=== PATIENT | male | born 1930 | race Caucasian/White ===

== ENCOUNTER 2016-05-23 04:10 | Observation (INO) | payer MEDICARE, OTHER ==
[~2016-05-23] VITALS: Ht 170.2 cm; Wt 88.6 kg
[~2016-05-23 04:10] MED LIST: ACTOS15 MG OR; AMOXICILLIN500 MG PO; BABY ASPIRIN81 MG PO; BAYER ASPIRIN E81 MG PO; CIPRO500 MG OR; COREG6.25 MG PO; DIFLUCAN100 MG PO; FINASTERIDE5 MG PO; FOSINOPRIL20 MG PO; GABAPENTIN100 MG PO; ISOSORB MONO30 MG PO; LANTUS SC; LANTUS100 MG/ML SC; LASIX40 MG OR; LIPITOR40 MG PO; LISINOPRIL20 MG PO; MELOXICAM7.5 MG PO; METO50TA52 OR; MICRO-K10 MEQ OR; NADOLOL20 MG PO; NAPROSYN500 MG PO; PLAVIX75 MG OR; PLAVIX75 MG PO; PROSCAR OR; PROSCAR5 MG PO; SYNTHROID100 MCG PO
--- NOTE | 2016-05-23 04:48 | NUR ---
PT. TO ROOM 12 WITH C/O CALLING EMS THE FIRST TIME WITH A LOW BG. 27 ON EMS ARRIVAL. EMS ADMINISTERED 1 AMP. OF D50. BG THEN 220 BY EMS. PT REFUSED TRANSPORT TO ED AT THIS TIME. 2 ND CALL FOR EMS WAS A C/O BY THAT PT. FELL. UPON ARRIVAL BG BY EMS 94. PT. THEN AGREED FOR TRANSFER TO ED. BG ON ARRIVAL TO ED 64. PT. GIVEN ENSURE CLEAR WITH 1 PACKET OF SUGAR, ALSO GIVEN APPLESAUCE. PT. STATES HE DOES NOT KNOW ANY MEDICATIONS THAT HE TAKES, JUST THAT HE TAKES A FISTFULL. PT. IS AWAKE ALERT AND ORIENTED, SKIN WARM AND DRY TO TOUCH, COLOR WNL, RESP. EVEN AND UNLABORED. V/S STABLE.
--- NOTE | 2016-05-23 04:57 | NUR ---
UNABLE TO RECONCILE MEDS. PATIENT STATES HE TAKES A HANDFUL OF MEDS AND INSULIN. HIS MEDS ARE HOME AND HIS IS NOT COMING IN UNTIL AFTER DAYLIGHT. UNABLE TO SECURE AN IV LINE. DR. ARRIAZA ALSO ATTEMPTED TO GET AN IV LINE. ACCUCHECK 64. GIVEN SUPPLEMENTAL DRINKS AND APPLESAUCE SWEETENED WITH SUGAR.
--- NOTE | 2016-05-23 05:40 | NUR ---
DRINKING A CAN OF GLUCERNA. VSS.
[2016-05-23 05:41] LABS: ALBUMIN 3.2 g/dL (3.2-5.0); BILIRUBIN, TOTAL 0.6 mg/dL (0.0-1.4); CALCIUM 8.7 mg/dL (8.4-10.2); CREATININE 1.7 mg/dL (0.7-1.3); POTASSIUM 4.2 mmol/l (3.5-5.1); TOTAL PROTEIN 6.4 g/dL (6.3-8.2)
[2016-05-23 05:48] LABS: HEMATOCRIT 30.9 % (39.0-50.0); HEMOGLOBIN 9.7 g/dl (14.0-18.0); IMMATURE GRANULOCYTES 1.4 % (0.0-1.0); MEAN CELL VOLUME 93.4 fL CALC (80.0-100.0); MEAN CORPUSCULAR HGB 29.3 pG CALC (26.0-32.0); MEAN CORPUSCULAR HGB CONC 31.4 g/L CALC (32.0-36.0); NEUT# 4.85 thou/uL (1.82-7.42); RED BLOOD COUNT 3.31 mill/uL (4.70-6.10); RED CELL DISTRI WIDTH 14.8 % (11.5-15.5)
[2016-05-23 06:12] LABS: TSH, 3RD GENERATION 1.56 uIU/mL (0.47 - 4.68)
[2016-05-23 06:38] LABS: URINE BILIRUBIN - DIPSTICK NEGATIVE (NEGATIVE); URINE BLOOD DIPSTICK LARGE (NEGATIVE); URINE CLARITY TURBID; URINE COLOR YELLOW; URINE GLUCOSE - DIPSTICK NEGATIVE (NEGATIVE); URINE KETONE NEGATIVE (NEGATIVE); URINE NITRITE - DIPSTICK NEGATIVE (Negative); URINE PH 5.5 (4.5-8.0); URINE PROTEIN - DIPSTICK 100 mg/dL (NEG-TRACE); URINE SPECIFIC GRAVITY 1.025; URINE UROBILINOGEN - DIPSTICK 0.2 E.U./dL (0.2)
[2016-05-23 06:42] LABS: URINE LEUK ESTERASE MODERATE (NEGATIVE)
[2016-05-23 06:43] LABS: URINE BACTERIA FEW hpf; URINE SQUAMOUS EPITHELIAL CELL FEW EPI/hpf (0-FEW); URINE WBC 20-50 WBC/hpf (0-5)
--- NOTE | 2016-05-23 06:46 | NUR ---
REPORT GIVEN TO ASYA JONES.
[2016-05-23 06:59] LABS: INTERNATIONAL NORMALIZED RATIO 1.2 RATIO (0.7-1.3); PROTHROMBIN TIME 12.7 SECONDS (9.0-12.5)
--- NOTE | 2016-05-23 07:50 | NUR ---
PT TOLERATED CENTRAL LINE PLACEMENT BY MD WELL.
--- NOTE | 2016-05-23 08:14 | NUR ---
PT CONSUMING MEAL TRAY WITH NO SIGNS OF DISTRESS. AWAITING ADMISSION.
--- NOTE | 2016-05-23 08:20 | NUR ---
MED REC UNOBTAINABLE AT THIS TIME DUE TO PT NOT HAVING A LIST, UNABLE TO GET AHOLD OF HIS WHO HAS THE LIST, UNABLE TO REMEMBER NAMES OF MEDICATIONS THAT THE HOSPITAL HAS, AND PT'S PHARMACY CLOSED AT THIS TIME. [facility] WILL BE CALLED WHEN THEY OPEN
--- NOTE | 2016-05-23 09:30 | NUR ---
Admission Note Report Given to: DANIELE Transported by: Wheelchair X Stretcher Transported with: X Nurse Transporter X Patent IV O2 X Psychiatry Physician PT LEFT ER IN STABLE CONDITION
--- NOTE | 2016-05-23 09:40 | NUR ---
PT TO ROOM VIA STRETCHER ACCOMPANIED BY STAFF; X2 PERSON TX TO BED; PT A/O X3; PT STATES BLOOD SUGAR WAS LOW AND EMT BOUGHT HIM TO THE HOSPITAL; PT ORIENTED TO ROOM AND CALL SYSTEM; TELE MONITOR IN PLACE; CALL CORBIN WITHIN REACH; WILL CONTINUE TO MONITOR.
[2016-05-23 09:59] VITALS: BP 135/58
--- NOTE | 2016-05-23 11:00 | NUR ---
DR. CASTILLO IN TO SEE PT;
[2016-05-23] MEDS ORDERED: AMIODARONE400 MG PO (12:28)
[2016-05-23] MEDS ORDERED: NORVASC PO (12:29)
[2016-05-23] MEDS ORDERED: LIPITOR40 M1 PO (12:29)
[2016-05-23] MEDS ORDERED: ASPIRIN EC81 MG PO (12:29)
[2016-05-23] MEDS ORDERED: PLAVIX75 MG PO (12:30)
[2016-05-23] MEDS ORDERED: COREG25 MG PO (12:30)
[2016-05-23] MEDS ORDERED: FINASTERIDE5 MG PO (12:31)
[2016-05-23] MEDS ORDERED: LANTUS100 MG/ML SC ×2 (12:32→12:33)
[2016-05-23] MEDS ORDERED: GABAPENTIN300 M2 PO (12:32)
[2016-05-23] MEDS ORDERED: LASIX 40 MG TAB40 MG PO (12:33)
[2016-05-23] MEDS ORDERED: LEVAQUIN500 MG PO (12:33)
[2016-05-23] MEDS ORDERED: METOCLOPRAM5 MG PO (12:34)
[2016-05-23] MEDS ORDERED: MELATONIN PO (12:34)
[2016-05-23] MEDS ORDERED: SYNTHROID100 MCG PO (12:35)
--- NOTE | 2016-05-23 13:00 | NUR ---
PT WATCHING TV; NO COMPLAINTS VOICED AT THIS TIME; SPOUSE IN ROOM; CALL CORBIN WITHIN REACH; WILL CONTINUE TO MONITOR.
--- NOTE | 2016-05-23 16:00 | NUR ---
PT IN RECLINER; PT REQUESTING NEW BED; ONE PROVIDED; CALL CORBIN WITHIN REACH; WILL CONTINUE TO MONITOR.
[2016-05-23 16:32] VITALS: BP 126/66
--- NOTE | 2016-05-23 18:00 | NUR ---
PT ASSISTED BACK TO BED; TELE MONITOR IN PLACE; PT DENIES PAIN; CALL CORBIN WITHIN REACH; WILL CONTINUE TO MONITOR.
[2016-05-23 18:53] VITALS: BP 149/74
--- NOTE | 2016-05-23 20:45 | NUR ---
[facility] PT.IS BEING ADMINISTERED PAIN MED UPON BEDSIDE REPORT, WILL REASSESS; PT.DENIES ANY FURTHER NEEDS AT THIS TIME.
--- NOTE | 2016-05-23 21:35 | NUR ---
PT.MEDICATED ORDERS PROVIDE, PT.REFUSED INSULIN; PT.EDUCATED, BUT STILL REFUSED
[2016-05-24 01:17] VITALS: BP 115/62
--- NOTE | 2016-05-24 03:00 | NUR ---
PT.SLEEPING AT THIS TIME; NO S/S OF DISTRESS
[2016-05-24 04:00] VITALS: BP 126/62
[2016-05-24 06:18] LABS: HEMATOCRIT 28.5 % (39.0-50.0); HEMOGLOBIN 9.5 g/dl (14.0-18.0); IMMATURE GRANULOCYTES 1.5 % (0.0-1.0); MEAN CELL VOLUME 90.2 fL CALC (80.0-100.0); MEAN CORPUSCULAR HGB 30.1 pG CALC (26.0-32.0); MEAN CORPUSCULAR HGB CONC 33.3 g/L CALC (32.0-36.0); NEUT# 2.71 thou/uL (1.82-7.42); RED BLOOD COUNT 3.16 mill/uL (4.70-6.10); RED CELL DISTRI WIDTH 14.7 % (11.5-15.5)
[2016-05-24 07:47] LABS: ALBUMIN 3.1 g/dL (3.2-5.0); BILIRUBIN, TOTAL 0.6 mg/dL (0.0-1.4); CALCIUM 8.6 mg/dL (8.4-10.2); CREATININE 1.5 mg/dL (0.7-1.3); TOTAL PROTEIN 6.3 g/dL (6.3-8.2)
--- NOTE | 2016-05-24 09:15 | NUR ---
899-PT TO RADIOLOGY VIA WC ACCOMPANIED BY STAFF. 914-PT RETURNED TO FLOOR VIA WC ACCOMPANIED BY STAFF. PT UP TO RECLINER CHAIR WITH ASSISTANCE OF STAFF X1. PT TOLERATED WELL.
[2016-05-24] MEDS ORDERED: AUGMENTIN875TAB PO (09:32)
--- NOTE | 2016-05-24 09:40 | NUR ---
PT SITTING UP IN RECLINER CHAIR. ASSESSMENT COMPLETED. ROCEPHIN IV ABT COMPLETED AT THIS TIME. POC DISCUSSED WITH PT. AWAITING CALL BACK FROM [facility] NURSE TO GIVE REPORT. PT VERBALIZES UNDERSTANDING. WILL CONTINUE TO MONITOR. CALL LIGHT IN REACH.
--- NOTE | 2016-05-24 10:05 | NUR ---
REPORT GIVEN TO JAY AT [facility]. AWAITING TRANSPORATION TIME. PT AND PTS UPDATED. CALL LIGHT IN REACH.
[2016-05-24 11:05] VITALS: BP 116/67
--- NOTE | 2016-05-24 14:39 | NUR ---
CENTRAL LINE REMOVED AT THIS TIME; PT TOLERATED WELL; PRESSURE HELD FOR 10 MINS; CATHETER INTACT UPON REMOVAL; PT EDUCATED TO CALL IF ANY BLEEDING IS NOTED; CALL LIGHT WITHIN REACH; WILL CONTINUE TO MONITOR
--- NOTE | 2016-05-24 15:04 | NUR ---
Discharge instructions given. Patient verbalizes understanding of same. Discharged in stable condition via Wheelchair to *Other with *Other. All belongings sent with pt.
== END 2016-05-24 15:00 ==
LOC: ENPENDDIS → ED 04:10 → ED-I 08:05 → ED 08:48 → MS2 08:49
PROVIDERS: Emergency Medicine; Internal Medicine; ADMIT Internal Medicine; ATTEND Internal Medicine
PROC: 02HV33Z Insertion of Infusion Device into Superior Vena Cava, Percutaneous Approach (ICD-10-PCS; principal; 2016-05-23)
DX: E11.649 Type 2 diabetes mellitus with hypoglycemia without coma (principal); N17.9 Acute kidney failure, unspecified; N39.0 Urinary tract infection, site not specified; I10 Essential (primary) hypertension; I25.10 Atherosclerotic heart disease of native coronary artery without angina pectoris; E03.9 Hypothyroidism, unspecified; I49.9 Cardiac arrhythmia, unspecified; E78.5 Hyperlipidemia, unspecified; E11.40 Type 2 diabetes mellitus with diabetic neuropathy, unspecified; Z87.891 Personal history of nicotine dependence; Z79.4 Long term (current) use of insulin; Z95.5 Presence of coronary angioplasty implant and graft; Z91.81 History of falling; Z79.82 Long term (current) use of aspirin; Z79.02 Long term (current) use of antithrombotics/antiplatelets; J98.11 Atelectasis; R09.02 Hypoxemia

== ENCOUNTER 2016-08-05 14:59 | Emergency (ER) | payer MEDICARE, OTHER ==
[~2016-08-05] VITALS: Ht 170.2 cm; Wt 90.0 kg
[~2016-08-05 14:59] MED LIST changes: +AMIODARONE400 MG PO; +ASPIRIN EC81 MG PO; +AUGMENTIN875TAB PO; +COREG25 MG PO; +GABAPENTIN300 M2 PO; +LASIX 40 MG TAB40 MG PO; +LEVAQUIN500 MG PO; +LIPITOR40 M1 PO; +MELATONIN PO; +METOCLOPRAM5 MG PO; +NORVASC PO
[2016-08-05 16:32] LABS: HEMATOCRIT 36.7 % (39.0-50.0); HEMOGLOBIN 12.8 g/dl (14.0-18.0); MEAN CELL VOLUME 85.3 fL CALC (80.0-100.0); MEAN CORPUSCULAR HGB 29.8 pG CALC (26.0-32.0); MEAN CORPUSCULAR HGB CONC 34.9 g/L CALC (32.0-36.0); NEUT# 7.2 thou/uL (1.82-7.42); RED BLOOD COUNT 4.3 mill/uL (4.70-6.10); RED CELL DISTRI WIDTH 13.9 % (11.5-15.5)
[2016-08-05 16:45] LABS: ACT PARTIAL THROMBO TIME 24.4 SECONDS (20.0-32.5); INTERNATIONAL NORMALIZED RATIO 0.9 RATIO (0.7-1.3); PROTHROMBIN TIME 10.2 SECONDS (9.0-12.5)
[2016-08-05 16:50] LABS: ALBUMIN 4.1 g/dL (3.2-5.0); BILIRUBIN, TOTAL 0.7 mg/dL (0.0-1.4); CALCIUM 9.5 mg/dL (8.4-10.2); CREATININE 1.5 mg/dL (0.7-1.3); POTASSIUM 4.4 mmol/l (3.5-5.1); TOTAL PROTEIN 7.3 g/dL (6.3-8.2)
[2016-08-05 17:47] VITALS: BP 198/93
== END 2016-08-05 17:00 | disposition short-term general hospital (02) ==
LOC: ED 14:59
PROVIDERS: Emergency Medicine
DX: I63.9 Cerebral infarction, unspecified (principal); R53.1 Weakness; I10 Essential (primary) hypertension
CPT/HCPCS: J2997

== ENCOUNTER 2016-10-07 11:40 | Emergency (ER) | payer MEDICARE, OTHER ==
[~2016-10-07] VITALS: Ht 170.2 cm; Wt 88.0 kg
[2016-10-07 13:10] LABS: HEMATOCRIT 33.6 % (39.0-50.0); HEMOGLOBIN 11.5 g/dl (14.0-18.0); MEAN CELL VOLUME 88.9 fL CALC (80.0-100.0); MEAN CORPUSCULAR HGB 30.4 pG CALC (26.0-32.0); MEAN CORPUSCULAR HGB CONC 34.2 g/L CALC (32.0-36.0); NEUT# 6.39 thou/uL (1.82-7.42); RED BLOOD COUNT 3.78 mill/uL (4.70-6.10); RED CELL DISTRI WIDTH 13.6 % (11.5-15.5)
[2016-10-07 13:17] LABS: ALBUMIN 3.7 g/dL (3.2-5.0); BILIRUBIN, TOTAL 0.7 mg/dL (0.0-1.4); CALCIUM 9.5 mg/dL (8.4-10.2); CREATININE 1.7 mg/dL (0.7-1.3); POTASSIUM 4.6 mmol/l (3.5-5.1); TOTAL PROTEIN 6.9 g/dL (6.3-8.2)
[2016-10-07 14:21] VITALS: BP 144/74
== END 2016-10-07 14:40 | disposition left against medical advice (07) ==
LOC: ED 11:40 → ED-I 12:13 → ED 14:40
PROVIDERS: Emergency Medicine
DX: R07.9 Chest pain, unspecified (principal); E11.9 Type 2 diabetes mellitus without complications; I10 Essential (primary) hypertension; I25.10 Atherosclerotic heart disease of native coronary artery without angina pectoris; E03.9 Hypothyroidism, unspecified; E78.5 Hyperlipidemia, unspecified; Q63.1 Lobulated, fused and horseshoe kidney; Z91.19 Patient's noncompliance with other medical treatment and regimen; Z95.5 Presence of coronary angioplasty implant and graft

== ENCOUNTER 2016-12-03 22:44 | Inpatient (IN) | payer MEDICARE, OTHER ==
[~2016-12-03] VITALS: Ht 170.2 cm; Wt 88.8 kg
--- NOTE | 2016-12-03 22:51 | NUR ---
PT TO ROOM VIA EMS
--- NOTE | 2016-12-03 23:05 | NUR ---
RECEIVED REPORT FROM ROBERT ARMSTRONG. PT AMAN RAMIREZ
[2016-12-03 23:58] LABS: URINE CLARITY TURBID
[2016-12-04 00:02] LABS: URINE AMORPH SEDIMENT FEW hpf (NONE-FER); URINE BACTERIA FEW hpf; URINE COLOR BROWN; URINE MUCUS FEW hpf (NONE-FEW); URINE RBC >100 RBC/hpf (0-5); URINE SQUAMOUS EPITHELIAL CELL FEW EPI/hpf (0-FEW)
--- NOTE | 2016-12-04 00:22 | NUR ---
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 ASSISTED WITH CALLING ON PHONE, TISSUES GIVEN, URINAL PROVIDED, URINE OBTAINED AND TO LAB, EXPLAINED LAB RESULTS TO PATIENT (INCLUDING BLOOD IN URINE). AFTER WHICH PT SAID THAT HE HAD PAIN OF LUQ THIS EVENING BUT THE PAIN HAS GONE.
--- NOTE | 2016-12-04 01:25 | NUR ---
MULTIPLE ATTEMPTS FOR IV SITE.
[2016-12-04 01:53] LABS: HEMOGLOBIN 11.1 g/dl (14.0-18.0); IMMATURE GRANULOCYTES 0.7 % (0.0-1.0); MEAN CELL VOLUME 87.8 fL CALC (80.0-100.0); MEAN CORPUSCULAR HGB 29.5 pG CALC (26.0-32.0); MEAN CORPUSCULAR HGB CONC 33.6 g/L CALC (32.0-36.0); NEUT# 8.58 thou/uL (1.82-7.42); RED BLOOD COUNT 3.76 mill/uL (4.70-6.10); RED CELL DISTRI WIDTH 14.5 % (11.5-15.5)
[2016-12-04 02:04] LABS: ALBUMIN 3.3 g/dL (3.2-5.0); BILIRUBIN, TOTAL 0.7 mg/dL (0.0-1.4); CALCIUM 8.9 mg/dL (8.4-10.2); CREATININE 1.5 mg/dL (0.7-1.3); POTASSIUM 4.3 mmol/l (3.5-5.1); TOTAL PROTEIN 6.4 g/dL (6.3-8.2)
--- NOTE | 2016-12-04 02:25 | NUR ---
ASSESSMENT UNCHANGED, NO C/O.
--- NOTE | 2016-12-04 03:25 | NUR ---
RESTING QUIETLY ON STRETCHER, EYES CLOSED, NO C/O.
--- NOTE | 2016-12-04 04:22 | NUR ---
md in room to discuss clinical findings with pt. and also make him aware of admission. verbalized understanding.
--- NOTE | 2016-12-04 04:41 | NUR ---
pt. voided approx 250 ml brown colored urine.
--- NOTE | 2016-12-04 04:43 | NUR ---
po abt. given as per md order.
--- NOTE | 2016-12-04 04:58 | NUR ---
Admission Note Report Given to: WILEY JONES Transported by: Wheelchair X Stretcher Transported with: X Nurse Transporter X Patent IV O2 Nut Sheller Machine Operator
--- NOTE | 2016-12-04 05:00 | NUR ---
PT. TAKEN TO MS VIA STRETCHER. NO C/O.
[2016-12-04 05:10] VITALS: BP 172/72
--- NOTE | 2016-12-04 06:00 | NUR ---
PATIENT ADMITTED FROM ER VIA STRETCHER WITH ER STAFF IN ATTENDANCE. PATIENT IS AWAKE ALERT AND ORIENTEDX3. PATIENT ADMITTED FOR OBSTRUCTIVE UROPATHY AND S/P FALL AT HOME. PATIENT WITH IV SITE TO LEFT WRIST-IVF NS HUNG AND INFUSING AT 125CC/HR. SITE APPEARS HEALTHY AT THIS TIME. PATIENT DENIES ANY ALLERGIES. INSTRUCTED PATIENT NPO FOR POSSIBLE PROCEDURE LATER TODAY. PATIENT ORIENTED TO ROOM AND SURROUNDINGS. INSTRUCTED ON USE OF NURSE CALL LIGHT SYSTEM AND TV REMOTE. REVIEWED SAFETY PRECAUTIONS WITH PATIENT. CALL LIGHT IN REACH. WILL CONT TO MONITOR.
--- NOTE | 2016-12-04 07:28 | NUR ---
SHIFT CHANGE REPORT FROM MIKE JAMA SLEEPING AT THIS TIME, BREATHING EVEN AND NON-LABORED, IVF INFUSING, NO SIGN DISCOMFORT, CALL CORBIN IN REACH.
[2016-12-04 08:27] VITALS: BP 156/73
[2016-12-04] MEDS ORDERED: RESTORIL7.5 MG PO (09:34)
[2016-12-04] MEDS ORDERED: FUROSEMIDE20 MG PO (09:35)
[2016-12-04] MEDS ORDERED: FINASTERIDE5 MG PO (09:35)
[2016-12-04] MEDS ORDERED: ATORVASTATIN CA40 MG PO (09:35)
[2016-12-04] MEDS ORDERED: LEVOTHYROXIN100 MC1 PO (09:35)
[2016-12-04] MEDS ORDERED: CLOPIDOGREL75 MG PO (09:36)
[2016-12-04] MEDS ORDERED: NEURONTIN300 MG PO (09:36)
[2016-12-04] MEDS ORDERED: AMLODIPINE5 MG PO (09:36)
[2016-12-04] MEDS ORDERED: AMIODARONE200 MG PO (09:37)
[2016-12-04] MEDS ORDERED: LANTUS100 UNIT/M SC (09:42)
--- NOTE | 2016-12-04 11:47 | NUR ---
3 ATTEMPTS TO START IV FAILED, WILL CONTACT OTHER DEPT TO ASSIST.
--- NOTE | 2016-12-04 13:00 | NUR ---
PT C/O BEING HUNGRY AND REFUSES TO HAVE ANYONE START IV UNTIL HE HAS EATEN, NOTIFIED AND GAVE ORDERS FOR MEAL.
[2016-12-04] MEDS ORDERED: ASPIRIN CHEWABL81 MG PO (13:45)
[2016-12-04 15:36] VITALS: BP 168/81
--- NOTE | 2016-12-04 16:00 | NUR ---
BAYRON FROM ED CAME TO UNIT TO ASSIST WITH IV CATHETER INSERTION AFTER PT STATED HE WAS NOW READY TO HAVE IT DONE, PROCEDURE WAS SUCCESSFUL.
[2016-12-04 18:20] VITALS: BP 159/82
--- NOTE | 2016-12-04 19:00 | NUR ---
PT SITTING UP IN BED WATCHING TV. RESP ARE EVEN AND UNLABORED. NO DISTRESS NOTED. PT IS ALERT AND ORIENTED TO PERSON AND PLACE. REORIENTED PT TO MONTHS AND DAY. PT KNEW THE YEAR. LUNGS ARE CLEAR ANTERIORLY AND POSTERIORLY. HR REGULAR. PULSES PALPABLE THROUGHOUT. NO EDEMA NOTED. BS ACTIVE. URINE IN URINAL IS DARK YELLOW. #22LFA WITH NS@125CC/HR INFUSING NO REDNESS OR EDEMA NOTED AT SITE. WILL CONTINUE TO MONITOR.
--- NOTE | 2016-12-04 23:44 | NUR ---
PT RESTING IN BED WITH EYES CLOSED ON LEFT SIDE. RESP ARE EVEN AND UNLABORED. NO DISTRESS NOTED. #22 LFA INFUSING NS @ 125CC/HR. NO REDNESS OR EDEMA NOTED AT IV SITE. WILL CONTINUE TO MONITOR.
--- NOTE | 2016-12-05 04:14 | NUR ---
PT RESTING IN BED ON RIGHT SIDE. RESP ARE EVEN AND UNLABORED. NO DISTRESS NOTED. #22LFA INFUSING NS @125CC/HR. NO REDNESS OR EDEMA NOTED AT IV SITE. WILL CONTINUE TO MONITOR.
[2016-12-05 04:32] VITALS: BP 155/82
[2016-12-05 06:10] LABS: HEMATOCRIT 30.9 % (39.0-50.0); HEMOGLOBIN 10.1 g/dl (14.0-18.0); MEAN CELL VOLUME 90.6 fL CALC (80.0-100.0); MEAN CORPUSCULAR HGB 29.6 pG CALC (26.0-32.0); MEAN CORPUSCULAR HGB CONC 32.7 g/L CALC (32.0-36.0); RED BLOOD COUNT 3.41 mill/uL (4.70-6.10); RED CELL DISTRI WIDTH 14.2 % (11.5-15.5)
[2016-12-05 06:19] LABS: ANION GAP 10 (6-22 (CALC)); BUN 19 mg/dL (8-23); BUN/CREATININE RATIO 16 (12-20 (CALC)); CALCIUM 8.6 mg/dL (8.4-10.2); CARBON DIOXIDE 24 mmol/l (22-30); CHLORIDE 113 mmol/l (95-108); CREATININE 1.2 mg/dL (0.7-1.3); GFR 57 ML/MIN (>=60 (CALC)); GFR FOR AFR.AMER. > 60 ML/MIN (>=60 (CALC)); GLUCOSE 168 mg/dL (82-115); SODIUM 143 mmol/l (137-146)
--- NOTE | 2016-12-05 07:00 | NUR ---
SHIFT CHANGE REPORT FROM MIKE JENKINS SLEEPING WITH ENTIRE BODY + HEAD COVERED UNDER LINNEN, RESPONDS TO TACTILE STIMULI, ORIENTED, NO C/O DISCOMFORT, IVF 0.9 NS INFUSING @ 125ML/HR TO SITE IN LFA, ALL NEEDS ADDRESSED, CALL CORBIN IN REACH.
[2016-12-05 08:15] VITALS: BP 155/73
[2016-12-05 08:38] VITALS: BP 155/73
--- NOTE | 2016-12-05 10:54 | NUR ---
HOME HEALTH RECOMMENDED FOR PT BUT PT AND SPOUSE REFUSED, PT WILL BE D/C HOME WITH SELF CARE.
--- NOTE | 2016-12-05 10:58 | NUR ---
Discharge instructions given. Patient verbalizes understanding of same. Discharged in stable condition via Wheelchair to Home with spouse. All belongings sent with pt.
== END 2016-12-05 10:58 | disposition home health service (06) | DRG 694 ==
LOC: ED 22:44 → ED-I 12-04 04:00 → ED 12-04 04:38 → MS2 12-04 04:39
PROVIDERS: Emergency Medicine; ADMIT Internal Medicine; ATTEND Internal Medicine
DX: N13.2 Hydronephrosis with renal and ureteral calculous obstruction (principal); N17.9 Acute kidney failure, unspecified; E11.40 Type 2 diabetes mellitus with diabetic neuropathy, unspecified; F03.90 Unspecified dementia, unspecified severity, without behavioral disturbance, psychotic disturbance, mood disturbance, and anxiety; E11.649 Type 2 diabetes mellitus with hypoglycemia without coma; E86.0 Dehydration; Q63.1 Lobulated, fused and horseshoe kidney; I25.10 Atherosclerotic heart disease of native coronary artery without angina pectoris; I49.9 Cardiac arrhythmia, unspecified; I10 Essential (primary) hypertension; N40.0 Benign prostatic hyperplasia without lower urinary tract symptoms; E03.9 Hypothyroidism, unspecified; Z87.891 Personal history of nicotine dependence; Z79.4 Long term (current) use of insulin; Z95.5 Presence of coronary angioplasty implant and graft; Z91.81 History of falling

== ENCOUNTER 2016-12-19 12:46 | Emergency (ER) | payer MEDICARE, OTHER ==
[~2016-12-19] VITALS: Ht 170.2 cm; Wt 85.0 kg
[~2016-12-19 12:46] MED LIST changes: +AMIODARONE200 MG PO; +AMLODIPINE5 MG PO; +ASPIRIN CHEWABL81 MG PO; +ATORVASTATIN CA40 MG PO; +CLOPIDOGREL75 MG PO; +FUROSEMIDE20 MG PO; +LANTUS100 UNIT/M SC; +LEVOTHYROXIN100 MC1 PO; +NEURONTIN300 MG PO; +RESTORIL7.5 MG PO
[2016-12-19 14:47] LABS: HEMATOCRIT 34.8 % (39.0-50.0); HEMOGLOBIN 11.7 g/dl (14.0-18.0); IMMATURE GRANULOCYTES 0.9 % (0.0-1.0); MEAN CELL VOLUME 87.2 fL CALC (80.0-100.0); MEAN CORPUSCULAR HGB 29.3 pG CALC (26.0-32.0); MEAN CORPUSCULAR HGB CONC 33.6 g/L CALC (32.0-36.0); NEUT# 4.86 thou/uL (1.82-7.42); RED BLOOD COUNT 3.99 mill/uL (4.70-6.10); RED CELL DISTRI WIDTH 14.3 % (11.5-15.5)
[2016-12-19 14:49] LABS: URINE BILIRUBIN - DIPSTICK NEGATIVE (NEGATIVE); URINE BLOOD DIPSTICK LARGE (NEGATIVE); URINE COLOR YELLOW; URINE GLUCOSE - DIPSTICK >=1000 mg/dL (NEGATIVE); URINE KETONE NEGATIVE (NEGATIVE); URINE NITRITE - DIPSTICK NEGATIVE (Negative); URINE PROTEIN - DIPSTICK 100 mg/dL (NEG-TRACE); URINE UROBILINOGEN - DIPSTICK 0.2 E.U./dL (0.2)
[2016-12-19 14:51] LABS: URINE CLARITY CLOUDY; URINE LEUK ESTERASE MODERATE (NEGATIVE)
[2016-12-19 14:57] LABS: URINE RBC TNTC RBC/hpf (0-5)
[2016-12-19 14:58] LABS: URINE BACTERIA FEW hpf; URINE SQUAMOUS EPITHELIAL CELL FEW EPI/hpf (0-FEW); URINE WBC 20-50 WBC/hpf (0-5)
[2016-12-19 15:14] LABS: ALBUMIN 3.8 g/dL (3.2-5.0); ALKALINE PHOSPHATASE 186 u/l (38-126); ANION GAP 16 (6-22 (CALC)); BILIRUBIN, TOTAL 0.9 mg/dL (0.0-1.4); BUN 26 mg/dL (8-23); BUN/CREATININE RATIO 19 (12-20 (CALC)); CALCIUM 9.3 mg/dL (8.4-10.2); CARBON DIOXIDE 23 mmol/l (22-30); CHLORIDE 108 mmol/l (95-108); CREATININE 1.4 mg/dL (0.7-1.3); GFR 48 ML/MIN (>=60 (CALC)); GFR FOR AFR.AMER. 58 ML/MIN (>=60 (CALC)); GLUCOSE 282 mg/dL (82-115); POTASSIUM 4.2 mmol/l (3.5-5.1); SGOT/AST 45 u/l (19-48); SGPT/ALT 75 u/l (11-66); SODIUM 143 mmol/l (137-146); TOTAL PROTEIN 6.9 g/dL (6.3-8.2)
[2016-12-19 15:25] LABS: MYOGLOBIN 71 ng/mL (0 - 121)
[2016-12-19] MEDS ORDERED: NORCO1 TA2 PO (15:46)
[2016-12-19] MEDS ORDERED: CEPHALEXIN500 MG PO (17:12)
[2016-12-19 17:14] VITALS: BP 137/65
== END 2016-12-19 17:26 | disposition home or self-care (01) ==
LOC: ED 12:46
PROVIDERS: Emergency Medicine
DX: M79.604 Pain in right leg (principal); M79.601 Pain in right arm; G89.29 Other chronic pain; N39.0 Urinary tract infection, site not specified; E11.9 Type 2 diabetes mellitus without complications; I10 Essential (primary) hypertension; E03.9 Hypothyroidism, unspecified; E78.5 Hyperlipidemia, unspecified; Q63.1 Lobulated, fused and horseshoe kidney; Z91.81 History of falling; Z95.5 Presence of coronary angioplasty implant and graft; R94.31 Abnormal electrocardiogram [ECG] [EKG]

== ENCOUNTER 2016-12-21 09:06 | Inpatient (IN) | payer MEDICARE, OTHER ==
[~2016-12-21] VITALS: Ht 170.2 cm; Wt 88.8 kg
[~2016-12-21 09:06] MED LIST changes: +CEPHALEXIN500 MG PO; +NORCO1 TA2 PO
--- NOTE | 2016-12-21 09:14 | NUR ---
PATIENT TO ROOM VIA EMS AND PHYSICIAN AT BEDSIDE
[2016-12-21 09:54] LABS: ALBUMIN 3.2 g/dL (3.2-5.0); BILIRUBIN, TOTAL 1.3 mg/dL (0.0-1.4); CREATININE 1.4 mg/dL (0.7-1.3); POTASSIUM 4.3 mmol/l (3.5-5.1); TOTAL PROTEIN 6.3 g/dL (6.3-8.2)
--- NOTE | 2016-12-21 10:20 | NUR ---
PT RETURNED FROM RADIOLOGY. ADVISED OF WAIT TIME FOR TEST RESULS. COMFORT MEASURES PROVIDED. CALL LIGHT WIHTIN REACH. IV SITE HEALTHY.
[2016-12-21 10:45] LABS: HEMATOCRIT 32.3 % (39.0-50.0); HEMOGLOBIN 11.1 g/dl (14.0-18.0); IMMATURE GRANULOCYTES 1.1 % (0.0-1.0); MEAN CELL VOLUME 86.4 fL CALC (80.0-100.0); MEAN CORPUSCULAR HGB 29.7 pG CALC (26.0-32.0); MEAN CORPUSCULAR HGB CONC 34.4 g/L CALC (32.0-36.0); NEUT# 6.36 thou/uL (1.82-7.42); RED BLOOD COUNT 3.74 mill/uL (4.70-6.10); RED CELL DISTRI WIDTH 14.3 % (11.5-15.5)
[2016-12-21 10:49] LABS: URINE BILIRUBIN - DIPSTICK NEGATIVE (NEGATIVE); URINE BLOOD DIPSTICK LARGE (NEGATIVE); URINE CLARITY CLOUDY; URINE COLOR YELLOW; URINE GLUCOSE - DIPSTICK 250 mg/dL (NEGATIVE); URINE KETONE NEGATIVE (NEGATIVE); URINE NITRITE - DIPSTICK NEGATIVE (Negative); URINE PROTEIN - DIPSTICK 100 mg/dL (NEG-TRACE); URINE SPECIFIC GRAVITY >=1.030; URINE UROBILINOGEN - DIPSTICK 0.2 E.U./dL (0.2)
[2016-12-21 10:50] LABS: URINE LEUK ESTERASE MODERATE (NEGATIVE)
[2016-12-21 10:55] LABS: URINE WBC 50-100 WBC/hpf (0-5)
[2016-12-21 10:56] LABS: URINE YEAST MANY hpf
--- NOTE | 2016-12-21 11:07 | NUR ---
SBAR PRINTED TO FLOOR
--- NOTE | 2016-12-21 11:21 | NUR ---
MD AT BEDSIDE DISCUSSING PLAN OF CARE W/PT. PT TO BE ADMITTED.
[2016-12-21 11:45] VITALS: BP 164/63
--- NOTE | 2016-12-21 11:45 | NUR ---
PT.ARRIVED TO FLOOR ACCOMPANIED BY ROBERT DANIELS OF ED. PT.AMBULATED W/1X ASSIST TO STANDING SCALE AND BED. REPORTS PAIN IN HIP. IV SITE IS AN EMS SITE AND NOT FLUSHING/IV REMOVED INTACT AND SITE APPEARS HEALTHY. V/S ASSESSED AND PT.IS BEING ORIENTED TO ROOM,CALL SYSTEM, SAFETY AND POC AT THIS TIME. WILL F/UP WITH NEW IV SITE AND FULL ASSESSMENT
--- NOTE | 2016-12-21 11:50 | NUR ---
PT TO [facility] VIA STRETCHER IV SITE HEALTHY. TELEMETRY IN PLACE. NO APPARENT DISTRESS. REPORT PROVIDED TO ROBERT NELSON.
--- NOTE | 2016-12-21 12:07 | NUR ---
Admission Note Report Given to: ROBERT NELSON Transported by: Stretcher Transported with: Nurse Fine Arts Teacher
--- NOTE | 2016-12-21 13:45 | NUR ---
NEW IV SITE ACCESSED/SITE APPEARS HEALTHY AND FLUSHES W/GOOD BLOOD RETURN. PT.MEDICATED W/MEDS ORDERED, PT.IS LOC TO SELF, PARTIAL AND PARTIAL LOCATION, NOT LOC TO DATE OR YEAR OF . URINE SAMPLE OBTAINED AND SENT TO LAB. PT.HAS GOOD RANGE OF MOTION IN RIGHT LEG AND ALL EXTREMETIES, LUNG SOUNDS ARE CLEAR, SKIN INTACT, PT.REPORTS BM TWO DAYS AGO, PT.HAS BRUISING TO UPPER EXTREMETIES BILATERALLY, BS 194 UPON ARRIVING TO THE FLOOR, C/O SOME HIP PAIN UPON MOVING AROUND, BUT PT.APPEARS COMFORTABLE NOW AND IS WATCHING TV. DENIES ANY OTHER NEEDS AT THIS TIME, CALL LIGHT IS W/IN REACH, PT INSTRUCTED TO CALL IF ANY NEEDS ARISE. BED ALARM IS ON.
[2016-12-21 14:45] VITALS: BP 146/58; BP 151/62; BP 152/65
--- NOTE | 2016-12-21 14:45 | NUR ---
PT.ORTHOSTATIC BP ASSESSED: SUPINE 151/62 HR74, SITTING 146/58 HR80, STANDING 152/65 HR90
[2016-12-21 16:33] VITALS: BP 174/68
[2016-12-21 16:53] VITALS: BP 143/61
--- NOTE | 2016-12-21 17:22 | NUR ---
PT.HAS NOT BEEN DRINKING PO FLUIDS, I REMINDED HIM THAT HE NEEDS TO REMEMBER TO DRINK HIS WATER AND PO FLUIDS. PT.ASSISTED TO USE URINAL ON SIDE OF BED, PT.VERY WEAK UPON SITTING OR STANDING, PT.V/S WERE ASSESSED BP143/61,HR71,[id number]%RA, BS 190/INSULIN PROVIDED ORDERED. PT.IS WATCHING TV AND AWAITING HIS SUPPER TRAY. CALL LIGHT W/IN REACH AND PT.REMINDED TO CALL IF NEEDS ARISE.
--- NOTE | 2016-12-21 18:02 | NUR ---
PT.SUPPER TRAY COLLECTED 1/2 EATEN AND INTAKE OF PO FLUIDS OF 240CC. PT.URINAL EMPTIED OF 100CC CLOUDY YELLOW URINE.
--- NOTE | 2016-12-21 19:20 | NUR ---
PT RESTING IN HIGH FOWLERS POSITION WATCHING TV;NO SIGNS OF DISTRESS NOTED;RESPIRATIONS APPEAR EVEN AND UNLABORED ON RA;ASSESSMENT COMPLETED AND VS OBTAINED;#22G TO LEFT HAND FLUSHED AND PATENT;TELE MONITOR IN PLACE;PT A&O X2, PT CAN IDENTIFY NAME AND YEAR CORRECTLY;PT RE-ORIENTED TO PLACE;BED ALARM PLACED ON PT FOR SAFETY;SKIN INTACT;+1 EDEMA NOTED TO RIGHT UPPER ARM,ARM ELEVATED ON A PILLOW AT THIS TIME;PO FLUIDS ENCOURAGED AND FRESH WATER PROVIDED;PT VOICES NO COMPLAINTS AT THIS TIME;FALL PRECAUTIONS IN PLACE WITH BED IN THE LOWEST POSITION;PT EDUCATED TO CALL FOR ASSISTANCE IF NEEDED;CALL LIGHT IN REACH;WILL CONTINUE TO MONITOR
[2016-12-21 19:42] VITALS: BP 131/63
--- NOTE | 2016-12-21 20:55 | NUR ---
PT REQUESTS SLEEPING MEDICATION THIS EVENING;PT MEDICATED WITH PRN SONATA 5MG PO;PT DENIES ANY OTHER NEEDS AT THIS TIME;WILL CONTINUE TO MONITOR
[2016-12-22] VITALS (8 sets, daily range): BP systolic 114–162; BP diastolic 54–83
--- NOTE | 2016-12-22 00:10 | NUR ---
PT APPEARS TO BE SLEEPING WITH EYES CLOSED AND NO DISTRESS NOTED;WOKE PT TO OBTAIN VS; ORTHOSTATICS COMPLETED AT THIS TIME;SUPINE BP 114/54 HR 67,SITTING BP 162/83 HR 67,STANDING BP 147/74 HR 87;PT VOIDED 150CC OF YELLOW/CLOUDY URINE INTO URINAL;PT RE-POSITIONED BACK INTO BED;PT COMPLAINS OF RIGHT ARM PAIN RATING 6/10 ON THE PAIN SCALE AND IS MEDICATED WITH ULTRAM 50MG;PO FLUIDS ENCOURAGED;PT VOICES NO OTHER NEEDS OR CONCERNS AT THIS TIME;BED ALARM ON FOR SAFETY;CALL LIGHT IN REACH;WILL CONTINUE TO MONITOR
--- NOTE | 2016-12-22 04:45 | NUR ---
LAB REPORTS THAT PT REFUSES MORNING DRAW;UPON ENTERING THE ROOM PT RESTING IN SUPINE POSITION;PT AND WRITTER DISCUSS MORNING LAB WORK AND PT AGREES;VS OBTAINED;RESPIRATIONS EVEN AND UNLABORED ON RA;IV SITE REMAINS PATENT;BED ALARM IN PLACE;PT VOICES NO COMPLAINTS AT THIS TIME;RIGHT ARM ELEVATED ON PILLOW;FALL PRECAUTIONS IN PLACE;WILL CONTINUE TO MONITOR
[2016-12-22 05:44] LABS: ALBUMIN 2.9 g/dL (3.2-5.0); CALCIUM 8.9 mg/dL (8.4-10.2); CREATININE 1.4 mg/dL (0.7-1.3); MAGNESIUM 2.1 mg/dL (1.6-2.3); POTASSIUM 3.5 mmol/l (3.5-5.1)
[2016-12-22 06:11] LABS: TSH, 3RD GENERATION 0.97 uIU/mL (0.47 - 4.68)
--- NOTE | 2016-12-22 07:00 | NUR ---
SHIFT CHANGE REPORT FROM MIKE CRUZ SLEEPING BUT AROUSES TO VERBAL STIMULI, ALERT TO PERSON AND PLACE ONLY, C/O PAIN TO RIGHT ARM AND LEG AT THIS TIME. ASSISTED TO RECLINER AND WITH BLADDER ELIMINATION, CALL CORBIN IN REACH.
--- NOTE | 2016-12-22 09:04 | NUR ---
BLOOD GLUCOSE @ 0700 = 68, OJ GIVEN AND MEAL SERVED, RECHECKED POST MEAT NOW = 182
--- NOTE | 2016-12-22 15:43 | NUR ---
RESTING IN BED, C/O R. LEG PAIN AT THIS TIME, WILL ADDRESS ISSUE IN TIMELY MANNER WITH WARM COMPRESS AND ALALGESICS, CALL CORBIN IN REACH.
--- NOTE | 2016-12-22 20:10 | NUR ---
PT RESTING IN SEMI FOWLERS POSITION;PT VOICES NO COMPLAINTS R/T PAIN;RESP EVEN AND UNLABORED ON RA;ASSESSMENT COMPLETED;+1 EDEMA NOTED TO RIGHT ARM,ARM REMAINS ELEVATED;#22G TO LEFT HAND FLUSHED AND PATENT;GENERALIZED BRUSING NOTED THROUGHOUT BODY;PT REQUEST SLEEPING MEDICATION;PRN SONATA ADMINISTERED;SAFETY PRECAUTIONS REINFORCED;PO FLUIDS ENCOURAGED AND URINAL AT BEDSIDE;FALL PRECAUTIONS IN PLACE WITH CALL LIGHT IN REACH;WILL CONTINUE TO MONITOR
--- NOTE | 2016-12-23 | NUR ---
PT APPEARS TO BE SLEEPING WITH EYES CLOSED;WOKE PT TO OBTAIN VS;PT STATES "THIS IS LIKE BEING IN A DAMN BARN,YOU GUYS ALWAYS NEED SOMETHING";WRITTER EXPLAINED TO PT THE IMPORTANCE OF MAINTAINING VS AND TELE MONITORING;PT REPOSITIONED IN BED;PT VOICES NO COMPLAINTS OF PAIN;FALL PRECAUTIONS IN PLACE;CALL LIGHT IN REACH;WILL CONTINUE TO MONITOR
[2016-12-23 00:04] VITALS: BP 142/63
[2016-12-23 05:18] VITALS: BP 137/64
[2016-12-23 05:55] LABS: HEMATOCRIT 30.2 % (39.0-50.0); IMMATURE GRANULOCYTES 0.9 % (0.0-1.0); MEAN CELL VOLUME 90.1 fL CALC (80.0-100.0); MEAN CORPUSCULAR HGB 29.9 pG CALC (26.0-32.0); MEAN CORPUSCULAR HGB CONC 33.1 g/L CALC (32.0-36.0); NEUT# 2.64 thou/uL (1.82-7.42); RED BLOOD COUNT 3.35 mill/uL (4.70-6.10); RED CELL DISTRI WIDTH 14.2 % (11.5-15.5)
--- NOTE | 2016-12-23 06:10 | NUR ---
PT APPEARS TO BE SLEEPING IN LEFT SIDE LAYING POSITION;WOKE PT TO ADMINISTER SCHEDULED MEDICATION;PT DENIES ANY PAIN OR DISCOMFORTS THIS MORNING;RESP EVEN AND UNLABORED ON RA;TELE MONITOR IN PLACE;PT VOICES NO NEEDS AT THIS TIME;EDUCATED TO CALL FOR ASSISTANCE;CALL LIGHT IN REACH;WILL CONTINUE TO MONITOR
[2016-12-23 06:20] LABS: CALCIUM 8.6 mg/dL (8.4-10.2); CREATININE 1.4 mg/dL (0.7-1.3); MAGNESIUM 2.1 mg/dL (1.6-2.3); POTASSIUM 4.2 mmol/l (3.5-5.1)
--- NOTE | 2016-12-23 07:00 | NUR ---
SHIFT CHANGE REPORT FROM MIKE CRUZ AWAKE AND ALERT, DISORIENTED TO TIME, ASSISTED OOB TO RECLINER AND SET-UP FOR MEAL. TELE MONITOR IN PLACE, CALL CORBIN IN REACH.
[2016-12-23 08:50] VITALS: BP 133/65
--- NOTE | 2016-12-23 09:00 | NUR ---
C/O R. LEG PAIN, ISSUE ADDRESSED.
--- NOTE | 2016-12-23 12:00 | NUR ---
SITTING UP IN RECLINER AND ATE MEAL, STATES PAIN IN R. LEG IS GETTING BETTER BUT STILL HURTS ON MOVEMENT OR IN CERTAIN POSITIONS, NO OTHER COMPLAIN AT THIS TIME, CALL CORBIN IN REACH.
[2016-12-23 12:15] VITALS: BP 127/69
--- NOTE | 2016-12-23 15:59 | NUR ---
Patient states feeling well today. Patient reports not having a bowel movement since being admitted. Patient denies feeling any pain or discomfort due to constipation. Patient's nurse, Daija, was made aware of conversation. Patient is not experiencing any side-effects and did not have any questions regarding his medications.
[2016-12-23 16:00] VITALS: BP 137/62
--- NOTE | 2016-12-23 16:00 | NUR ---
STILL IN RECLINER, ALL NEEDS ADDRESSED, CALL CORBIN IN REACH.
--- NOTE | 2016-12-23 16:36 | NUR ---
PATIENT UP IN CHAIR. PATIENT HAS WEAKNESS OF RIGHT LE. UNABLE TO FLEX R HIP IN SITTING. ABLE TO EXT KNEE AND TAP TOES (DORSIFLXN). SIT TO STAND WITH CGA TO RW FOR GT 20 FT X 1. REQUIRED V.C.'S FOR STAND TO SIT WITH POOR LE GRADED CONTROL (PLOPS TO SITTING). ENCOURAGED TO PRACTICE MARCHING AND DORSIFLXN IN SITTING. PATIENT IS EXPECTING TO GO TO REHAB TOMORROW.
[2016-12-23 16:44] LABS: CHOLESTEROL HDL RATIO 2.4 (<4.4 (CALC))
--- NOTE | 2016-12-23 19:00 | NUR ---
PT RESTING IN BED WATCHING TV. PT IS ALERT AND ORIENTED. PERRLA. RESP ARE EVEN AND UNLABORED. LUNGS ARE CLEAR. TELE IN PLACE. HR REGULAR. PULSES PALPABLE THROUGHOUT. TRACE EDEMA ON PITTING TO BILAT LOWER EXTREMITIES. ABD SOFT. BS ACTIVE. PT REPORTS HAVING A BOWEL MOVEMENT ON DAY SHIFT. #22 LEFT HAND. NO REDNESS OR EDEMA NOTED. WILL CONTINUE TO MONITOR.
[2016-12-23 23:00] VITALS: BP 129/72
--- NOTE | 2016-12-24 00:01 | NUR ---
PT RESTING IN BED WITH EYES CLOSED. AROUSES TO VERBAL STIMULI. TELE IN PLACE. NO CHANGE IN PATIENT STATUS. WILL CONTINUE TO MONITOR.
--- NOTE | 2016-12-24 03:15 | NUR ---
PT WOKE UP CONFUSED TO PLACE. PT ORIENTED TO SELF AND TIME. PT STATES THAT HE DOES NOT REMEBER COMING TO THE HOSPITAL. EXPLAINED HOW LONG HE HAS BEEN HERE. PT REQUESTED TO CALL . PT KNEW 'S PHONE NUMBER AND CALLED. PT'S SPOUSE PROVIDED REASSURANCE FOR PT. INFORMED PT THAT HE WAS GOING TO REHAB TOMORROW. EXPLAINED THAT PT WAS GIVEN MEDICATION FOR SLEEPING BECAUSE PT HAD STATED THAT HE HAD NOT BEEN SLEEPING. THIS MEDICATION MAY HAVE CAUSED SOME CONFUSION. WILL CONTINUE TO MONITOR AND REORIENT PATIENT.
--- NOTE | 2016-12-24 03:45 | NUR ---
PT RESTING IN BED WITH EYES CLOSED. RESP ARE EVEN AND UNLABORED. NO DISTRESS NOTED. WILL CONTINUE TO MONITOR.
[2016-12-24 05:19] VITALS: BP 129/58
--- NOTE | 2016-12-24 06:00 | NUR ---
PT AROUSED TO VERBAL STIMULI TO TAKE MEDICATION. PT IS ALERT AND ORIENTED X3 ONCE AWAKE. WILL CONTINUE TO MONITOR. PT STATES THAT HE DOES NOT WANT A SLEEP AIDE ANY MORE. WILL PASS ON TO NEXT SHIFT.
--- NOTE | 2016-12-24 07:00 | NUR ---
RECEIVED BEDSIDE REPORT FROM GREGORY JONES. RESTING IN BED WITH EYES CLOSED, AWAKENS EASILY. RESPS EVEN AND UNLABORED ON ROOM AIR, TELE MONITOR IN PLACE. VOICES NO NEEDS AT THIS TIME. PLAN OF CARE DISCUSSED. SAFETY PRECAUTIONS REINFORCED. BED IN LOWEST POSITION WITH WHEELS LOCKED. BED ALARM ON FOR SAFETY. CALL LIGHT WITHIN REACH. ENCOURAGED PT TO CALL FOR ANY NEEDS.
[2016-12-24 07:52] VITALS: BP 154/77
--- NOTE | 2016-12-24 08:50 | NUR ---
DR CASTILLO IN WITH PT, NEW ORDERS RECEIVED.
[2016-12-24 11:25] VITALS: BP 144/60
[2016-12-24] MEDS ORDERED: FLUCONAZOLE150 MG PO (12:17)
[2016-12-24] MEDS ORDERED: LYRICA75 MG PO (12:17)
[2016-12-24] MEDS ORDERED: RESTORIL7.5 MG PO (12:17)
[2016-12-24] MEDS ORDERED: TAMSULOSIN HCL0.4 MG PO (12:17)
[2016-12-24] MEDS ORDERED: TRAMADOL HCL50 MG PO (12:17)
[2016-12-24] MEDS ORDERED: COZAAR25 MG PO (12:17)
--- NOTE | 2016-12-24 13:00 | NUR ---
ASSISTED TO BEDSIDE COMMODE WITH MINIMAL ASSIST. UNABLE TO HAVE BOWEL MOVEMENT. REPORTS "I FEEL IT RIGHT THERE JUST CANT PASS IT." PRUNE JUICE WITH MIRALAX GIVEN FOR CONSTIPATION. WILL CONTINUE TO MONITOR.
--- NOTE | 2016-12-24 13:13 | NUR ---
PATIENT WANTS TO GET OOB TO GO TO BR HE FEELS "BOUND UP". SUPINE TO SIT WITH IN A AT R LE AND PULL TO SIT WITH R HAND. ABLE TO SCOOT TO EDGE OF BED WITH HANDRAIL. SIT TO STAND WITH CGA TO RW AND AMB 8 FEET FOR GT TO BR. REQUESTING TIME ON TOILET. CAME BACK AFTER 20 MIN AND PATIENT STATES HE STILL NEEDS 2 HOURS TO HAVE A B.M. NSG INFORMED THAT PATIENT IS IN BR AND WILL PULL CALL STRING WHEN READY FOR BACK TO BED.
--- NOTE | 2016-12-24 14:47 | NUR ---
NURSE TO NURSE REPORT CALLED TO LOVE SUAZO AT [facility].
--- NOTE | 2016-12-24 14:50 | NUR ---
Discharge instructions given. Patient verbalizes understanding of same. Discharged in stable condition via Medical Transport to [facility] with *Other. All belongings sent with pt. TO [facility] VIA MEDICAL TRANSPORT.
== END 2016-12-24 14:49 | DRG 74 ==
LOC: ED 09:06 → ED-I 11:06 → ED 11:13 → MS2 11:14
PROVIDERS: Emergency Medicine; Nurse Practitioner Family; ADMIT Internal Medicine; ATTEND Internal Medicine
DX: E11.42 Type 2 diabetes mellitus with diabetic polyneuropathy (principal); E11.22 Type 2 diabetes mellitus with diabetic chronic kidney disease; I13.0 Hypertensive heart and chronic kidney disease with heart failure and stage 1 through stage 4 chronic kidney disease, or unspecified chronic kidney disease; I50.22 Chronic systolic (congestive) heart failure; N13.30 Unspecified hydronephrosis; B37.49 Other urogenital candidiasis; M48.061 Spinal stenosis, lumbar region without neurogenic claudication; N18.9 Chronic kidney disease, unspecified; E11.649 Type 2 diabetes mellitus with hypoglycemia without coma; D64.9 Anemia, unspecified; R26.89 Other abnormalities of gait and mobility; I25.10 Atherosclerotic heart disease of native coronary artery without angina pectoris; E78.5 Hyperlipidemia, unspecified; E03.9 Hypothyroidism, unspecified; N40.0 Benign prostatic hyperplasia without lower urinary tract symptoms; I25.2 Old myocardial infarction; I25.5 Ischemic cardiomyopathy; M19.90 Unspecified osteoarthritis, unspecified site; Q63.1 Lobulated, fused and horseshoe kidney; R42 Dizziness and giddiness; F01.50 Vascular dementia, unspecified severity, without behavioral disturbance, psychotic disturbance, mood disturbance, and anxiety; R53.81 Other malaise; Z95.5 Presence of coronary angioplasty implant and graft; Z91.81 History of falling; Z87.891 Personal history of nicotine dependence; Z79.4 Long term (current) use of insulin; Z86.79 Personal history of other diseases of the circulatory system; Z87.442 Personal history of urinary calculi

== ENCOUNTER 2017-02-25 18:55 | Emergency (ER) | payer MEDICARE, OTHER ==
[~2017-02-25] VITALS: Ht 170.2 cm; Wt 88.6 kg
[~2017-02-25 18:55] MED LIST changes: +COZAAR25 MG PO; +FLUCONAZOLE150 MG PO; +LYRICA75 MG PO; +TAMSULOSIN HCL0.4 MG PO; +TRAMADOL HCL50 MG PO
[2017-02-25 20:22] LABS: URINE BILIRUBIN - DIPSTICK NEGATIVE (NEGATIVE); URINE BLOOD DIPSTICK LARGE (NEGATIVE); URINE COLOR YELLOW; URINE GLUCOSE - DIPSTICK NEGATIVE (NEGATIVE); URINE KETONE NEGATIVE (NEGATIVE); URINE NITRITE - DIPSTICK NEGATIVE (Negative); URINE PH 6.5 (4.5-8.0); URINE PROTEIN - DIPSTICK 100 mg/dL (NEG-TRACE); URINE UROBILINOGEN - DIPSTICK 0.2 E.U./dL (0.2)
[2017-02-25 20:25] LABS: HEMATOCRIT 32.8 % (39.0-50.0); HEMOGLOBIN 11.3 g/dl (14.0-18.0); MEAN CELL VOLUME 87.5 fL CALC (80.0-100.0); MEAN CORPUSCULAR HGB 30.1 pG CALC (26.0-32.0); MEAN CORPUSCULAR HGB CONC 34.5 g/L CALC (32.0-36.0); NEUT# 3.6 thou/uL (1.82-7.42); RED BLOOD COUNT 3.75 mill/uL (4.70-6.10); RED CELL DISTRI WIDTH 14.2 % (11.5-15.5)
[2017-02-25 20:25] LABS: URINE CLARITY CLOUDY; URINE LEUK ESTERASE LARGE (NEGATIVE)
[2017-02-25 20:30] VITALS: BP 157/69
[2017-02-25] MEDS ORDERED: CIPROFLOXACN500 MG PO (20:33)
[2017-02-25 20:35] LABS: URINE WBC 50-100 WBC/hpf (0-5)
[2017-02-25 20:41] LABS: ALBUMIN 3.8 g/dL (3.2-5.0); BILIRUBIN, TOTAL 0.5 mg/dL (0.0-1.4); CALCIUM 9.7 mg/dL (8.4-10.2); CREATININE 1.7 mg/dL (0.7-1.3); POTASSIUM 3.7 mmol/l (3.5-5.1); TOTAL PROTEIN 6.6 g/dL (6.3-8.2)
[2017-02-25 20:48] LABS: INFLUENZA A NONE DETECTED (NONE DETECT); INFLUENZA B NONE DETECTED (NONE DETECT)
== END 2017-02-25 20:40 | disposition left against medical advice (07) ==
LOC: ED 18:55
PROVIDERS: Emergency Medicine
DX: N39.0 Urinary tract infection, site not specified (principal); E11.9 Type 2 diabetes mellitus without complications; I51.9 Heart disease, unspecified; J98.4 Other disorders of lung; Z91.19 Patient's noncompliance with other medical treatment and regimen

== ENCOUNTER 2018-05-15 12:46 | Emergency (ER) | payer MEDICARE, BC ==
[~2018-05-15] VITALS: Ht 170.2 cm; Wt 87.3 kg
[~2018-05-15 12:46] MED LIST changes: +CIPROFLOXACN500 MG PO
[2018-05-15 13:52] LABS: HEMOGLOBIN 10.4 g/dl (14.0-18.0); IMMATURE GRANULOCYTES 1.3 % (0.0-5.0); MEAN CELL VOLUME 94.3 fL CALC (80.0-100.0); MEAN CORPUSCULAR HGB 29.7 pG CALC (26.0-32.0); MEAN CORPUSCULAR HGB CONC 31.5 g/L CALC (32.0-36.0); NEUT# 4.09 thou/uL (1.82-7.42); RED BLOOD COUNT 3.5 mill/uL (4.70-6.10); RED CELL DISTRI WIDTH 14.3 % (11.5-15.5)
[2018-05-15 14:13] LABS: LIPASE 44 u/l (23-300)
[2018-05-15 14:14] LABS: AMYLASE < 30 u/l (30-110)
[2018-05-15 14:23] LABS: ALKALINE PHOSPHATASE 87 u/l (38-126); ANION GAP 14 (6-22 (CALC)); BILIRUBIN, TOTAL 0.7 mg/dL (0.0-1.4); BUN 26 mg/dL (8-23); BUN/CREATININE RATIO 20 (12-20 (CALC)); CARBON DIOXIDE 19 mmol/l (22-30); CHLORIDE 112 mmol/l (95-108); CREATININE 1.3 mg/dL (0.7-1.3); GFR 52 ML/MIN (>=60 (CALC)); GFR FOR AFR.AMER. > 60 ML/MIN (>=60 (CALC)); POTASSIUM 4.4 mmol/l (3.5-5.1); SGOT/AST 38 u/l (19-48); SODIUM 140 mmol/l (137-146); TOTAL PROTEIN 5.9 g/dL (6.3-8.2)
[2018-05-15 14:26] LABS: MYOGLOBIN 82 ng/mL (0 - 121)
[2018-05-15] MEDS ORDERED: ULTRAM50 M1 PO (15:04)
[2018-05-15 15:22] VITALS: BP 198/79
== END 2018-05-15 15:52 | disposition home or self-care (01) ==
LOC: ED 12:46
PROVIDERS: Emergency Medicine
DX: S09.90XA Unspecified injury of head, initial encounter (principal); W22.09XA Striking against other stationary object, initial encounter; R42 Dizziness and giddiness; R51 Headache; R11.2 Nausea with vomiting, unspecified

== ENCOUNTER 2018-06-05 10:20 | Emergency (ER) | payer MEDICARE, BC ==
[~2018-06-05] VITALS: Ht 170.2 cm; Wt 86.0 kg
[~2018-06-05 10:20] MED LIST changes: +ULTRAM50 M1 PO
[2018-06-05 11:30] LABS: ALBUMIN 3.2 g/dL (3.2-5.0); BILIRUBIN, TOTAL 0.9 mg/dL (0.0-1.4); CREATININE 1.5 mg/dL (0.7-1.3); POTASSIUM 4.2 mmol/l (3.5-5.1); TOTAL PROTEIN 5.9 g/dL (6.3-8.2)
[2018-06-05] MEDS ORDERED: FLEXERIL5 M1 PO (12:26)
[2018-06-05 12:54] VITALS: BP 166/81
== END 2018-06-05 13:17 | disposition home or self-care (01) ==
LOC: ED 10:20
PROVIDERS: Emergency Medicine
DX: S16.1XXA Strain of muscle, fascia and tendon at neck level, initial encounter (principal); M54.5 Low back pain; G89.29 Other chronic pain; M25.521 Pain in right elbow; W18.39XA Other fall on same level, initial encounter; Y92.009 Unspecified place in unspecified non-institutional (private) residence as the place of occurrence of the external cause; Z91.81 History of falling

== ENCOUNTER 2018-06-28 13:38 | Inpatient (IN) | payer MEDICARE, BC ==
[~2018-06-28] VITALS: Ht 172.7 cm; Wt 89.8 kg
[~2018-06-28 13:38] MED LIST changes: +FLEXERIL5 M1 PO
[2018-06-28 14:49] LABS: HEMATOCRIT 30.5 % (39.0-50.0); HEMOGLOBIN 9.8 g/dl (14.0-18.0); IMMATURE GRANULOCYTES 0.6 % (0.0-5.0); MEAN CELL VOLUME 92.1 fL CALC (80.0-100.0); MEAN CORPUSCULAR HGB 29.6 pG CALC (26.0-32.0); MEAN CORPUSCULAR HGB CONC 32.1 g/L CALC (32.0-36.0); NEUT# 4.61 thou/uL (1.82-7.42); RED BLOOD COUNT 3.31 mill/uL (4.70-6.10); RED CELL DISTRI WIDTH 14.3 % (11.5-15.5)
[2018-06-28 15:07] LABS: ALBUMIN 3.4 g/dL (3.2-5.0); ALKALINE PHOSPHATASE 109 u/l (38-126); ANION GAP 12 (6-22 (CALC)); BILIRUBIN, TOTAL 0.7 mg/dL (0.0-1.4); BUN 28 mg/dL (8-23); BUN/CREATININE RATIO 19 (12-20 (CALC)); CARBON DIOXIDE 25 mmol/l (22-30); CHLORIDE 107 mmol/l (95-108); CREATININE 1.5 mg/dL (0.7-1.3); GFR 44 ML/MIN (>=60 (CALC)); GFR FOR AFR.AMER. 54 ML/MIN (>=60 (CALC)); POTASSIUM 3.9 mmol/l (3.5-5.1); SGOT/AST 28 u/l (19-48); SODIUM 140 mmol/l (137-146); TOTAL PROTEIN 6.4 g/dL (6.3-8.2)
[2018-06-28] MEDS ORDERED: LANTUS SC (17:03)
[2018-06-28 17:20] VITALS: BP 134/74
[2018-06-28 19:00] VITALS: BP 130/78
[2018-06-28 23:55] VITALS: BP 109/61
[2018-06-29] VITALS (7 sets, daily range): BP systolic 163–190; BP diastolic 66–80
[2018-06-29 05:20] LABS: HEMATOCRIT 27.6 % (39.0-50.0); MEAN CELL VOLUME 91.7 fL CALC (80.0-100.0); MEAN CORPUSCULAR HGB 29.9 pG CALC (26.0-32.0); MEAN CORPUSCULAR HGB CONC 32.6 g/L CALC (32.0-36.0); NEUT# 4.91 thou/uL (1.82-7.42); RED BLOOD COUNT 3.01 mill/uL (4.70-6.10); RED CELL DISTRI WIDTH 14.3 % (11.5-15.5)
[2018-06-29 05:39] LABS: ALBUMIN 2.9 g/dL (3.2-5.0); ALKALINE PHOSPHATASE 93 u/l (38-126); ANION GAP 12 (6-22 (CALC)); BILIRUBIN, TOTAL 0.8 mg/dL (0.0-1.4); BUN 28 mg/dL (8-23); BUN/CREATININE RATIO 19 (12-20 (CALC)); CARBON DIOXIDE 26 mmol/l (22-30); CHLORIDE 108 mmol/l (95-108); CREATININE 1.5 mg/dL (0.7-1.3); GFR 44 ML/MIN (>=60 (CALC)); GFR FOR AFR.AMER. 54 ML/MIN (>=60 (CALC)); LIPASE 37 u/l (23-300); MAGNESIUM 1.8 mg/dL (1.6-2.3); POTASSIUM 3.4 mmol/l (3.5-5.1); SGOT/AST 22 u/l (19-48); SODIUM 142 mmol/l (137-146); TOTAL PROTEIN 5.5 g/dL (6.3-8.2)
[2018-06-29 05:55] LABS: AMYLASE < 30 u/l (30-110)
[2018-06-30] VITALS (7 sets, daily range): BP systolic 128–196; BP diastolic 62–77
[2018-06-30 05:51] LABS: HEMATOCRIT 31.6 % (39.0-50.0); HEMOGLOBIN 10.4 g/dl (14.0-18.0); IMMATURE GRANULOCYTES 0.9 % (0.0-5.0); MEAN CELL VOLUME 89.8 fL CALC (80.0-100.0); MEAN CORPUSCULAR HGB 29.5 pG CALC (26.0-32.0); MEAN CORPUSCULAR HGB CONC 32.9 g/L CALC (32.0-36.0); NEUT# 5.32 thou/uL (1.82-7.42); RED BLOOD COUNT 3.52 mill/uL (4.70-6.10); RED CELL DISTRI WIDTH 14.2 % (11.5-15.5)
[2018-06-30 06:30] LABS: ALBUMIN 3.2 g/dL (3.2-5.0); CREATININE 1.5 mg/dL (0.7-1.3); MAGNESIUM 1.7 mg/dL (1.6-2.3); POTASSIUM 3.5 mmol/l (3.5-5.1); TOTAL PROTEIN 5.9 g/dL (6.3-8.2)
[2018-06-30 14:02] LABS: URINE BILIRUBIN - DIPSTICK NEGATIVE (NEGATIVE); URINE BLOOD DIPSTICK SMALL (NEGATIVE); URINE CLARITY CLOUDY; URINE COLOR YELLOW; URINE GLUCOSE - DIPSTICK 100 mg/dL (NEGATIVE); URINE KETONE NEGATIVE (NEGATIVE); URINE LEUK ESTERASE LARGE (Negative); URINE NITRITE - DIPSTICK NEGATIVE (Negative); URINE PROTEIN - DIPSTICK 100 mg/dL (NEG-TRACE); URINE SPECIFIC GRAVITY 1.025; URINE UROBILINOGEN - DIPSTICK 0.2 E.U./dL (0.2)
[2018-06-30 14:03] LABS: URINE WBC >100 WBC/hpf (0-5)
[2018-06-30 14:04] LABS: URINE YEAST MODERATE hpf
[2018-07-01 00:08] VITALS: BP 129/56
[2018-07-01 04:23] VITALS: BP 143/63
[2018-07-01 05:16] LABS: ALBUMIN 3.1 g/dL (3.2-5.0); BUN 40 mg/dL (8-23); CARBON DIOXIDE 25 mmol/l (22-30); CHLORIDE 105 mmol/l (95-108); CREATININE 1.5 mg/dL (0.7-1.3); GFR 44 ML/MIN (>=60 (CALC)); GFR FOR AFR.AMER. 54 ML/MIN (>=60 (CALC)); POTASSIUM 3.6 mmol/l (3.5-5.1); SODIUM 138 mmol/l (137-146)
[2018-07-01 05:21] LABS: HEMATOCRIT 31.9 % (39.0-50.0); HEMOGLOBIN 10.5 g/dl (14.0-18.0); IMMATURE GRANULOCYTES 1.3 % (0.0-5.0); MEAN CELL VOLUME 91.1 fL CALC (80.0-100.0); MEAN CORPUSCULAR HGB CONC 32.9 g/L CALC (32.0-36.0); NEUT# 4.55 thou/uL (1.82-7.42); RED BLOOD COUNT 3.5 mill/uL (4.70-6.10); RED CELL DISTRI WIDTH 14.4 % (11.5-15.5)
[2018-07-01 07:45] VITALS: BP 139/69
[2018-07-01 11:02] VITALS: BP 108/60
[2018-07-01] MEDS ORDERED: BUMETANIDE1 MG PO (14:11)
== END 2018-07-01 14:34 | disposition home health service (06) | DRG 291 ==
LOC: ED 13:38 → ED-I 14:18 → ED 16:26 → MS2 16:27
PROVIDERS: Emergency Medicine; Internal Medicine Nephrology; ADMIT Internal Medicine Nephrology; ATTEND Internal Medicine Nephrology
DX: I13.0 Hypertensive heart and chronic kidney disease with heart failure and stage 1 through stage 4 chronic kidney disease, or unspecified chronic kidney disease (principal); I50.21 Acute systolic (congestive) heart failure; N18.3 Chronic kidney disease, stage 3 (moderate); E11.42 Type 2 diabetes mellitus with diabetic polyneuropathy; I25.10 Atherosclerotic heart disease of native coronary artery without angina pectoris; E11.22 Type 2 diabetes mellitus with diabetic chronic kidney disease; E11.21 Type 2 diabetes mellitus with diabetic nephropathy; E03.9 Hypothyroidism, unspecified; N40.0 Benign prostatic hyperplasia without lower urinary tract symptoms; E78.5 Hyperlipidemia, unspecified; I25.2 Old myocardial infarction; I25.5 Ischemic cardiomyopathy; D63.1 Anemia in chronic kidney disease; E87.6 Hypokalemia; Q63.1 Lobulated, fused and horseshoe kidney; N20.0 Calculus of kidney; Z95.5 Presence of coronary angioplasty implant and graft; Z87.891 Personal history of nicotine dependence; Z79.4 Long term (current) use of insulin
CPT/HCPCS: G0378

== ENCOUNTER 2018-07-31 11:29 | Emergency (ER) | payer MEDICARE, BC ==
[~2018-07-31] VITALS: Ht 172.7 cm; Wt 85.0 kg
[~2018-07-31 11:29] MED LIST changes: +BUMETANIDE1 MG PO
[2018-07-31 12:43] LABS: HEMATOCRIT 31.8 % (39.0-50.0); HEMOGLOBIN 10.2 g/dl (14.0-18.0); IMMATURE GRANULOCYTES 0.9 % (0.0-5.0); MEAN CELL VOLUME 94.1 fL CALC (80.0-100.0); MEAN CORPUSCULAR HGB 30.2 pG CALC (26.0-32.0); MEAN CORPUSCULAR HGB CONC 32.1 g/L CALC (32.0-36.0); NEUT# 4.41 thou/uL (1.82-7.42); RED BLOOD COUNT 3.38 mill/uL (4.70-6.10); RED CELL DISTRI WIDTH 14.2 % (11.5-15.5)
[2018-07-31 12:48] LABS: URINE BILIRUBIN - DIPSTICK NEGATIVE (NEGATIVE); URINE BLOOD DIPSTICK TRACE-LYSED (NEGATIVE); URINE COLOR YELLOW; URINE GLUCOSE - DIPSTICK NEGATIVE (NEGATIVE); URINE KETONE NEGATIVE (NEGATIVE); URINE NITRITE - DIPSTICK NEGATIVE (Negative); URINE PH 5.5 (4.5-8.0); URINE PROTEIN - DIPSTICK 100 mg/dL (NEG-TRACE); URINE UROBILINOGEN - DIPSTICK 0.2 E.U./dL (0.2)
[2018-07-31 12:50] LABS: ALBUMIN 3.5 g/dL (3.2-5.0); ALKALINE PHOSPHATASE 124 u/l (38-126); ANION GAP 15 (6-22 (CALC)); BILIRUBIN, TOTAL 0.7 mg/dL (0.0-1.4); BUN 30 mg/dL (8-23); BUN/CREATININE RATIO 17 (12-20 (CALC)); CARBON DIOXIDE 20 mmol/l (22-30); CHLORIDE 111 mmol/l (95-108); CREATININE 1.7 mg/dL (0.7-1.3); GFR 38 ML/MIN (>=60 (CALC)); GFR FOR AFR.AMER. 46 ML/MIN (>=60 (CALC)); POTASSIUM 4.2 mmol/l (3.5-5.1); SGOT/AST 37 u/l (19-48); SODIUM 142 mmol/l (137-146); TOTAL PROTEIN 6.6 g/dL (6.3-8.2)
[2018-07-31 12:52] LABS: URINE LEUK ESTERASE MODERATE (NEGATIVE)
[2018-07-31 12:59] LABS: URINE WBC 20-50 WBC/hpf (0-5)
[2018-07-31 13:45] VITALS: BP 153/68
[2018-07-31] MEDS ORDERED: KEFLEX500 M1 PO (13:50)
== END 2018-07-31 13:55 | disposition home or self-care (01) ==
LOC: ED 11:29
PROVIDERS: Emergency Medicine
DX: S80.01XA Contusion of right knee, initial encounter (principal); R60.9 Edema, unspecified; N39.0 Urinary tract infection, site not specified; E11.9 Type 2 diabetes mellitus without complications; I25.10 Atherosclerotic heart disease of native coronary artery without angina pectoris; I11.0 Hypertensive heart disease with heart failure; I50.9 Heart failure, unspecified; W19.XXXA Unspecified fall, initial encounter; Z91.81 History of falling; Z95.5 Presence of coronary angioplasty implant and graft

== ENCOUNTER 2018-11-01 15:07 | Emergency (ER) | payer MEDICARE, BC ==
[~2018-11-01] VITALS: Ht 172.7 cm; Wt 100.0 kg
[~2018-11-01 15:07] MED LIST changes: +KEFLEX500 M1 PO
[2018-11-01 16:30] LABS: URINE BILIRUBIN - DIPSTICK NEGATIVE (NEGATIVE); URINE BLOOD DIPSTICK SMALL (NEGATIVE); URINE COLOR YELLOW; URINE GLUCOSE - DIPSTICK NEGATIVE (NEGATIVE); URINE KETONE NEGATIVE (NEGATIVE); URINE NITRITE - DIPSTICK NEGATIVE (Negative); URINE PH 5.5 (4.5-8.0); URINE PROTEIN - DIPSTICK 30 mg/dL (NEG-TRACE); URINE SPECIFIC GRAVITY 1.025; URINE UROBILINOGEN - DIPSTICK 0.2 E.U./dL (0.2)
[2018-11-01 16:37] LABS: URINE LEUK ESTERASE LARGE (NEGATIVE)
[2018-11-01] MEDS ORDERED: METOCLOPRAMIDE H5 MG PO (16:37)
[2018-11-01] MEDS ORDERED: BASAGLAR K100 UNIT/M SC (16:38)
[2018-11-01] MEDS ORDERED: FINASTERIDE5 MG PO (16:38)
[2018-11-01] MEDS ORDERED: LEVOTHYROXIN100 MC1 PO (16:38)
[2018-11-01] MEDS ORDERED: FUROSEMIDE20 MG PO (16:38)
[2018-11-01] MEDS ORDERED: TAMSULOSIN HCL0.4 MG PO (16:39)
[2018-11-01] MEDS ORDERED: LOSARTAN POTASS50 MG PO (16:39)
[2018-11-01] MEDS ORDERED: BUMETANIDE1 MG PO (16:39)
[2018-11-01] MEDS ORDERED: AMIODARONE HCL200 MG PO (16:39)
[2018-11-01] MEDS ORDERED: ATORVASTATIN CA40 MG PO (16:39)
[2018-11-01 16:54] LABS: URINE WBC 50-100 WBC/hpf (0-5)
[2018-11-01 16:54] LABS: HEMATOCRIT 29.8 % (39.0-50.0); HEMOGLOBIN 9.7 g/dl (14.0-18.0); IMMATURE GRANULOCYTES 1.7 % (0.0-5.0); MEAN CELL VOLUME 94.3 fL CALC (80.0-100.0); MEAN CORPUSCULAR HGB 30.7 pG CALC (26.0-32.0); MEAN CORPUSCULAR HGB CONC 32.6 g/L CALC (32.0-36.0); NEUT# 5.61 thou/uL (1.82-7.42); RED BLOOD COUNT 3.16 mill/uL (4.70-6.10); RED CELL DISTRI WIDTH 14.2 % (11.5-15.5)
[2018-11-01 16:55] LABS: URINE SQUAMOUS EPITHELIAL CELL FEW EPI/hpf (0-FEW); URINE YEAST FEW hpf
[2018-11-01] MEDS ORDERED: CEPHALEXIN500 M1 PO (17:51)
[2018-11-01 18:43] VITALS: BP 116/58
== END 2018-11-01 19:01 | disposition left against medical advice (07) ==
LOC: ED 15:07 → ED-I 15:21 → ED 19:01
PROVIDERS: Family Medicine
PROC: 2W3QX1Z Immobilization of Right Lower Leg using Splint (ICD-10-PCS; principal; 2018-11-01)
DX: S92.411A Displaced fracture of proximal phalanx of right great toe, initial encounter for closed fracture (principal); R53.1 Weakness; N39.0 Urinary tract infection, site not specified; I11.0 Hypertensive heart disease with heart failure; I50.9 Heart failure, unspecified; E11.9 Type 2 diabetes mellitus without complications; I25.10 Atherosclerotic heart disease of native coronary artery without angina pectoris; Z95.5 Presence of coronary angioplasty implant and graft; W19.XXXA Unspecified fall, initial encounter; Z91.19 Patient's noncompliance with other medical treatment and regimen

== ENCOUNTER 2018-11-01 19:57 | Observation (INO) | payer MEDICARE, BC ==
[~2018-11-01] VITALS: Ht 172.7 cm; Wt 87.1 kg
[~2018-11-01 19:57] MED LIST changes: +AMIODARONE HCL200 MG PO; +BASAGLAR K100 UNIT/M SC; +CEPHALEXIN500 M1 PO; +LOSARTAN POTASS50 MG PO; +METOCLOPRAMIDE H5 MG PO
[2018-11-01 22:45] VITALS: BP 180/80
[2018-11-02 00:15] VITALS: BP 154/72
[2018-11-02 03:20] VITALS: BP 133/64
[2018-11-02 08:52] VITALS: BP 179/74
[2018-11-02 10:40] VITALS: BP 159/60
[2018-11-02 15:00] VITALS: BP 153/67
[2018-11-02 19:26] VITALS: BP 167/66
[2018-11-03 03:50] VITALS: BP 160/69
[2018-11-03 05:34] LABS: CREATININE 1.4 mg/dL (0.7-1.3); POTASSIUM 4.4 mmol/l (3.5-5.1)
[2018-11-03 05:38] LABS: HEMATOCRIT 24.6 % (39.0-50.0); HEMOGLOBIN 7.9 g/dl (14.0-18.0); MEAN CELL VOLUME 94.3 fL CALC (80.0-100.0); MEAN CORPUSCULAR HGB 30.3 pG CALC (26.0-32.0); MEAN CORPUSCULAR HGB CONC 32.1 g/L CALC (32.0-36.0); RED BLOOD COUNT 2.61 mill/uL (4.70-6.10); RED CELL DISTRI WIDTH 13.7 % (11.5-15.5)
[2018-11-03 09:40] LABS: HEMATOCRIT 25.5 % (39.0-50.0); HEMOGLOBIN 8.3 g/dl (14.0-18.0); MEAN CELL VOLUME 93.4 fL CALC (80.0-100.0); MEAN CORPUSCULAR HGB 30.4 pG CALC (26.0-32.0); MEAN CORPUSCULAR HGB CONC 32.5 g/L CALC (32.0-36.0); RED BLOOD COUNT 2.73 mill/uL (4.70-6.10); RED CELL DISTRI WIDTH 13.8 % (11.5-15.5)
[2018-11-03 09:58] VITALS: BP 157/60
[2018-11-03 10:20] VITALS: BP 157/60
[2018-11-03] MEDS ORDERED: TRAMADOL HCL50 MG PO (12:01)
== END 2018-11-03 14:40 | disposition home or self-care (01) ==
LOC: ED 19:57 → ED-I 21:21 → ED 21:35 → MS2 21:36
PROVIDERS: Internal Medicine; ADMIT Internal Medicine; ATTEND Internal Medicine
DX: N39.0 Urinary tract infection, site not specified (principal); N17.9 Acute kidney failure, unspecified; I13.0 Hypertensive heart and chronic kidney disease with heart failure and stage 1 through stage 4 chronic kidney disease, or unspecified chronic kidney disease; E11.22 Type 2 diabetes mellitus with diabetic chronic kidney disease; I50.9 Heart failure, unspecified; N18.9 Chronic kidney disease, unspecified; I25.10 Atherosclerotic heart disease of native coronary artery without angina pectoris; I48.91 Unspecified atrial fibrillation; E78.5 Hyperlipidemia, unspecified; S92.411D Displaced fracture of proximal phalanx of right great toe, subsequent encounter for fracture with routine healing; W19.XXXD Unspecified fall, subsequent encounter; E11.42 Type 2 diabetes mellitus with diabetic polyneuropathy; E03.9 Hypothyroidism, unspecified; I25.2 Old myocardial infarction; I25.5 Ischemic cardiomyopathy; M19.90 Unspecified osteoarthritis, unspecified site; N40.0 Benign prostatic hyperplasia without lower urinary tract symptoms; Z87.891 Personal history of nicotine dependence; Z86.73 Personal history of transient ischemic attack (TIA), and cerebral infarction without residual deficits; Z95.5 Presence of coronary angioplasty implant and graft; Z79.4 Long term (current) use of insulin; Z91.81 History of falling
CPT/HCPCS: J1650

== ENCOUNTER 2019-07-17 02:52 | Emergency (ER) | payer MEDICARE, BC ==
[2019-07-17 05:16] LABS: HEMATOCRIT 29.1 % (39.0-50.0); HEMOGLOBIN 9.6 g/dl (14.0-18.0); IMMATURE GRANULOCYTES 0.8 % (0.0-5.0); MEAN CELL VOLUME 91.5 fL CALC (80.0-100.0); MEAN CORPUSCULAR HGB 30.2 pG CALC (26.0-32.0); NEUT# 3.71 thou/uL (1.82-7.42); RED BLOOD COUNT 3.18 mill/uL (4.70-6.10); RED CELL DISTRI WIDTH 14.5 % (11.5-15.5)
[2019-07-17 05:28] LABS: INTERNATIONAL NORMALIZED RATIO 1.1 RATIO (0.7-1.3); PROTHROMBIN TIME 11.7 SECONDS (9.0-12.5)
[2019-07-17 05:55] LABS: ALBUMIN 3.3 g/dL (3.2-5.0); BILIRUBIN, TOTAL 0.8 mg/dL (0.0-1.4); CREATININE 1.6 mg/dL (0.7-1.3); POTASSIUM 3.3 mmol/l (3.5-5.1); TOTAL PROTEIN 6.7 g/dL (6.3-8.2)
[2019-07-17 09:57] VITALS: BP 155/71
== END 2019-07-17 10:17 | disposition home or self-care (01) ==
LOC: ED 02:52
PROVIDERS: Family Medicine
DX: R07.9 Chest pain, unspecified (principal); I11.0 Hypertensive heart disease with heart failure; I50.9 Heart failure, unspecified; I25.10 Atherosclerotic heart disease of native coronary artery without angina pectoris; E11.9 Type 2 diabetes mellitus without complications; Z86.73 Personal history of transient ischemic attack (TIA), and cerebral infarction without residual deficits; Z95.5 Presence of coronary angioplasty implant and graft

== ENCOUNTER 2019-08-29 12:02 | Emergency (ER) | payer MEDICARE, BC ==
[~2019-08-29] VITALS: Ht 172.7 cm; Wt 88.0 kg
[2019-08-29] MEDS ORDERED: FUROSEMIDE20 MG PO (12:28)
[2019-08-29] MEDS ORDERED: TAMSULOSIN HCL0.4 MG PO (12:29)
[2019-08-29] MEDS ORDERED: ATORVASTATIN CA40 MG PO (12:29)
[2019-08-29] MEDS ORDERED: LOSARTAN POTASS50 MG PO (12:29)
[2019-08-29] MEDS ORDERED: AMIODARONE HCL200 MG PO (12:30)
[2019-08-29] MEDS ORDERED: LEVOTHYROXIN100 MC1 PO (12:30)
[2019-08-29] MEDS ORDERED: FINASTERIDE5 MG PO (12:31)
[2019-08-29] MEDS ORDERED: BACTROBAN TOP ×2 (13:42)
[2019-08-29 14:15] VITALS: BP 182/80
== END 2019-08-29 14:15 | disposition home or self-care (01) ==
LOC: ED 12:02
PROC: 0HBCXZZ Excision of Left Upper Arm Skin, External Approach (ICD-10-PCS; principal; 2019-08-29)
DX: S41.112A Laceration without foreign body of left upper arm, initial encounter (principal); S80.01XA Contusion of right knee, initial encounter; E11.9 Type 2 diabetes mellitus without complications; I11.0 Hypertensive heart disease with heart failure; I50.9 Heart failure, unspecified; I25.10 Atherosclerotic heart disease of native coronary artery without angina pectoris; H91.90 Unspecified hearing loss, unspecified ear; W10.9XXA Fall (on) (from) unspecified stairs and steps, initial encounter; Y92.009 Unspecified place in unspecified non-institutional (private) residence as the place of occurrence of the external cause; Z86.73 Personal history of transient ischemic attack (TIA), and cerebral infarction without residual deficits; Z95.5 Presence of coronary angioplasty implant and graft

== ENCOUNTER 2019-10-06 06:37 | Emergency (ER) | payer MEDICARE, BC ==
[~2019-10-06] VITALS: Ht 172.7 cm; Wt 90.0 kg
[~2019-10-06 06:37] MED LIST changes: +BACTROBAN TOP
[2019-10-06 07:23] LABS: CREATININE 1.4 mg/dL (0.7-1.3); POTASSIUM 3.7 mmol/l (3.5-5.1)
[2019-10-06 08:08] LABS: HEMATOCRIT 28.9 % (39.0-50.0); HEMOGLOBIN 9.2 g/dl (14.0-18.0); IMMATURE GRANULOCYTES 0.7 % (0.0-5.0); MEAN CELL VOLUME 92.6 fL CALC (80.0-100.0); MEAN CORPUSCULAR HGB 29.5 pG CALC (26.0-32.0); MEAN CORPUSCULAR HGB CONC 31.8 g/dL CAL (32.0-36.0); NEUT# 3.54 thou/uL (1.82-7.42); RED BLOOD COUNT 3.12 mill/uL (4.70-6.10); RED CELL DISTRI WIDTH 14.3 % (11.5-15.5)
[2019-10-06 08:41] VITALS: BP 183/74
== END 2019-10-06 08:30 | disposition home or self-care (01) ==
LOC: ED 06:37
PROVIDERS: Family Medicine
DX: E11.649 Type 2 diabetes mellitus with hypoglycemia without coma (principal); I11.0 Hypertensive heart disease with heart failure; I50.9 Heart failure, unspecified; I25.10 Atherosclerotic heart disease of native coronary artery without angina pectoris; Z95.5 Presence of coronary angioplasty implant and graft; Z86.73 Personal history of transient ischemic attack (TIA), and cerebral infarction without residual deficits

== ENCOUNTER 2019-10-20 11:09 | Observation (INO) | payer MEDICARE, BC ==
[~2019-10-20] VITALS: Ht 172.7 cm; Wt 82.3 kg
--- NOTE | 2019-10-20 11:23 | NUR ---
TO ROOM 12 VIA EMS STRETCHER, PER EMS PT WAS HYPOGLYCEMIC AT HOME WITH ACCUCHECK 31.
--- NOTE | 2019-10-20 11:24 | NUR ---
PT ALERT AND ORIENTED X 3, AIRWAY PATENT, RESP EVEN AND NON LABORED, SKIN P/W/D. MD AT BEDSIDE WITH PT.
--- NOTE | 2019-10-20 11:33 | NUR ---
VERBAL ORDER FOR REPEAT EKG BY DR SOLORZANO AT THIS TIME.
[2019-10-20 11:58] LABS: HEMATOCRIT 30.9 % (39.0-50.0); HEMOGLOBIN 9.5 g/dl (14.0-18.0); IMMATURE GRANULOCYTES 1.1 % (0.0-5.0); MEAN CELL VOLUME 94.2 fL CALC (80.0-100.0); MEAN CORPUSCULAR HGB CONC 30.7 g/dL CAL (32.0-36.0); NEUT# 3.25 thou/uL (1.82-7.42); RED BLOOD COUNT 3.28 mill/uL (4.70-6.10); RED CELL DISTRI WIDTH 14.6 % (11.5-15.5)
[2019-10-20 12:17] LABS: ALBUMIN 3.2 g/dL (3.2-5.0); ALKALINE PHOSPHATASE 126 u/l (38-126); BILIRUBIN, TOTAL 0.6 mg/dL (0.0-1.4); BUN 22 mg/dL (8-23); BUN/CREATININE RATIO 14 (12-20 (CALC)); CHLORIDE 110 mmol/l (95-108); CREATININE 1.6 mg/dL (0.7-1.3); GFR 41 ML/MIN (>=60 (CALC)); GFR FOR AFR.AMER. 50 ML/MIN (>=60 (CALC)); POTASSIUM 3.6 mmol/l (3.5-5.1); SGOT/AST 52 u/l (19-48); TOTAL PROTEIN 6.3 g/dL (6.3-8.2)
[2019-10-20 12:22] LABS: ANION GAP 13 (6-22 (CALC)); CARBON DIOXIDE 25 mmol/l (22-30); SODIUM 144 mmol/l (137-146)
--- NOTE | 2019-10-20 12:30 | NUR ---
REPEAT ACCUCHECK 90, ORANGE JUICE GIVEN AT THIS TIME. PT COMPLETED APPROXIMATELY 50% OF MEAL TRAY. STATES " HERE, TAKE THIS, I'M FINISHED WITH THIS SHIT"
[2019-10-20 12:42] LABS: URINE BILIRUBIN - DIPSTICK NEGATIVE (NEGATIVE); URINE BLOOD DIPSTICK SMALL (NEGATIVE); URINE COLOR YELLOW; URINE GLUCOSE - DIPSTICK NEGATIVE (NEGATIVE); URINE KETONE NEGATIVE (NEGATIVE); URINE NITRITE - DIPSTICK NEGATIVE (Negative); URINE PROTEIN - DIPSTICK 30 mg/dL (NEG-TRACE); URINE SPECIFIC GRAVITY 1.015; URINE UROBILINOGEN - DIPSTICK 0.2 E.U./dL (0.2)
[2019-10-20 12:48] LABS: URINE BACTERIA FEW hpf; URINE EPITHELIAL CELLS MODERATE EPI/hpf (0-FEW); URINE LEUK ESTERASE LARGE (NEGATIVE); URINE RBC 0-2 RBC/hpf (0-5); URINE WBC 20-50 WBC/hpf (0-5)
--- NOTE | 2019-10-20 13:09 | NUR ---
MD AT BEDSIDE TO DISCUSS RESULTS AND POC.
--- NOTE | 2019-10-20 13:19 | NUR ---
SPOUSE AT BEDSIDE.
--- NOTE | 2019-10-20 14:42 | NUR ---
SHARON CONTRERAS AT BEDSIDE TO DISCUSS ADMISSION.
--- NOTE | 2019-10-20 15:03 | NUR ---
REPORT CALLED TO AV JONES
--- NOTE | 2019-10-20 15:41 | NUR ---
TO ROOM 280 VIA STRETCHER, TELE MONITOR IN PLACE. BEDSIDE REPORT GIVEN TO AV JONES.
[2019-10-20 15:45] VITALS: BP 155/73
--- NOTE | 2019-10-20 16:07 | NUR ---
PT ARRIVED TO UNIT AT 1519 VIA STRETCHER WITH ER STAFF; ALERT TO SELF INCLUDING NAME, , AND AGE; HARD OF HEARING. PULLED FROM STRETCHER TO BED WITH 4 PERSON ASSIST; PT STATES THAT HE CANNOT MOVE HIMSELF OVER; ALSO REPORTS THAT HE NORMALLY AMBULATES AT HOME WITH A WALKER. VSS. DENIES PAIN. RESPIRATIONS EVEN AND UNLABORED ON ROOM AIR. PT IS UNKEPT WITH DRIED SKIN; STATES THAT HE IS UNABLE TO GET INTO SHOWER AND HIS SOCKS HAVE BEEN ON FOR A MONTH; SOCK RESIDUE STUCK TO BOTTOM OF FEET AND SKIN IS MOIST FROM WET SOCKS. COMPLETE [facility] BED BATH PROVIDED BY NURSE AND 2 CNAS. LUNGS ARE CLEAR; HR REGULAR. 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 ABDOMEN SOFT AND NONTENDER WITH GOOD BS. SWOLLEN SCROTUM POSSIBLE HERNIA THAT PT STATES IT HAS ALWAYS BEEN SWOLLEN. REDNESS TO PERIAREA; BLANCHABLE REDNESS TO COCCYX. 4+ EDEMA TO RLE AND 2+ EDEMA TO LLE. PT IS A POOR HISTORIAN; UNABLE TO PROVIDE ALL INFORMATION ABOUT HOME MEDS. STATES THAT HE TAKES HIS BLOOD SUGAR DAILY AND TAKES INSULIN THEN LATER REPORTS THE HE DOES NOT. PT REPORTS THAT HE HAS FREQUENT FALLS AT HOME AND SAYS HE FELL THIS MORNING. STATES, "I TRIED TO SIT DOWN IN THE CHAIR AND I MISSED." HAS ONE DAUGHTER WHO LIVES IN [place]. SAFETY MEASURES IN PLACE INCLUDING BED ALARM; FALL PRECAUTIONS IN PLACE; IN ROOM CLOSE TO NURSES DESK. ORIENTED TO ROOM AND CALL LIGHT SYSTEM. CALL LIGHT WITHIN REACH.
--- NOTE | 2019-10-20 16:42 | NUR ---
PT REQUESTING SNACK; ACCU CHECK 128. PLEASANT AND COOPERATIVE.
[2019-10-20 19:06] VITALS: BP 160/66
--- NOTE | 2019-10-20 20:00 | NUR ---
PATIENT ALERT, VERBAL, ABLE TO MAKE NEEDS KNOWN. ABLE TO TOLERATE MEDS WELL WHOLE. CONT OF BOWEL AND BLADDER WITH OCC EPISODES OF INC NOTED--CARE PROVIDED PRN. MINIMAL ASSIST OF ONE WITH ALL TRANSFERS--UNSTEADY GAIT. DENIES PAIN OR DISCOMFORT AT TIME OF ASSESSMENT. HS BS 0F 229--SNACK GIVEN AT HIS REQUEST. SAFTEY PRECAUTIONS IN PLACE RELATED TO POOR SAFETY AWARENESS. TURNED AND REPOSITIONED WHEN PATIENT ALLOWS--NON-COMPLIANT AT TIMES--BLANCHABLE REDNESS NOTED TO COCCYX--SKIN INTACT. CONT TO HAVE 4+ RLE AND 2+ TO LLE--ENCOURAGED TO ELEVATE ON PILLOWS THIS SHIFT WHILE IN BED. PIV SITE PATENT TO LEFT FOREARM--SITE UNREMARKABLE. URINE CX REMAINS PENDING AT THIS TIME. WILL CONT TO MONITOR FOR FURTHER CHANGES.
--- NOTE | 2019-10-20 23:00 | NUR ---
PATIENT C/O INSOMNIA--STATES HE TAKES SOMETHING FOR SLEEP AT HOME EVERY NIGHT--BENEFITS CLERK MD--KISHORE--CONTACTED--NEW ORDERS FOR RESTORIL 7.5MG PO TIMES 1 TONIGHT--AWAITING INPUT BY PHARMACY AT THIS TIME. PATIENT MADE AWARE.
--- NOTE | 2019-10-20 23:46 | NUR ---
RECEIVED CORRESPONDENCE FROM PHARMACY THAT MD ORDERED RESTORIL 7.5MG A ONE TIME DOSE TONIGHT FOR PATIENT AND THE ONLY DOSAGE IN STOCK IS 15MG--MD CONTACTED TO CLARIFY IF 15MG WOULD BE OK FOR ONE TIME DOSE--IN AGREEMENT-ORDERS CLARIFIED AND SENT BACK TO PHARMACY FOR PROCESSING.
[2019-10-20 23:59] VITALS: BP 179/80
--- NOTE | 2019-10-21 | NUR ---
PATIENT RECEIVED ONE TIME DOSE OF SLEEPING MED ORDERED--PENDING RESULTS AT THIS TIME--HAS NOT YET BEEN ABLE TO FALL ASLEEP. LEGS CONT TO BE ELEVATED ON PILLOWS TO ALLEVIATE EDEMA IN [place] LEGS IF POSSIBLE. PIV SITE PATENT TO LEFT FOREARM--SITE UNREMARKABLE. WILL CONT TO MONITOR FOR ANY FURTHER CHANGES.
--- NOTE | 2019-10-21 00:05 | NUR ---
BP AT THIS TIME NOTED TO BE 179/80 MANUALLY--BOOKMOBILE CLERK --KISHORE--CONTACTED--NEW ORDERS FOR HYDRALAZINE 10MG IV Q 6 HOURS PRN FOR SYSTOLIC B/P >160/90. ORDERS FAXED TO PHARMACY--AWAITING INPUT FROM PHARMACY AT THIS TIME.
--- NOTE | 2019-10-21 00:18 | NUR ---
PTS BP 179/80 HR 61. APRESOLINE 10 MG IV GIVEN. PTS NURSE TO REASSESS.
[2019-10-21 00:47] VITALS: BP 148/67
--- NOTE | 2019-10-21 00:48 | NUR ---
RECHECK OF BP AT THIS TIME 148/67 P 62.--NO APPARENT DISTRESS NOTED. WILL CONT TO MONITOR.
--- NOTE | 2019-10-21 04:00 | NUR ---
PATIENT RESTING SOUNDLY IN BED WITH EYES CLOSED AT THIS TIME. SLEEPING MED EFFECTIVE. TURNED AND RESPOSITIONED Q2 HRS. URINE CX REMAINS PENDING AT THIS TIME. FSBS ORDERED WITH NO SSI--NO S/S OF GLYCEMIC REACTION NOTED. WILL CONT TO MONITOR FOR SAFETY AND ANY FURTHER CHANGES.
[2019-10-21 04:14] VITALS: BP 150/63
[2019-10-21 05:42] LABS: HEMOGLOBIN 8.5 g/dl (14.0-18.0); MEAN CELL VOLUME 93.4 fL CALC (80.0-100.0); MEAN CORPUSCULAR HGB 29.4 pG CALC (26.0-32.0); MEAN CORPUSCULAR HGB CONC 31.5 g/dL CAL (32.0-36.0); RED BLOOD COUNT 2.89 mill/uL (4.70-6.10); RED CELL DISTRI WIDTH 14.6 % (11.5-15.5)
[2019-10-21 06:09] LABS: CREATININE 1.7 mg/dL (0.7-1.3); POTASSIUM 3.9 mmol/l (3.5-5.1)
[2019-10-21 06:11] LABS: MAGNESIUM 2.2 mg/dL (1.6-2.3)
[2019-10-21 07:21] VITALS: BP 164/79
--- NOTE | 2019-10-21 07:30 | NUR ---
REPORT RECEIVED FROM GABRIELE PICKENS. PT SITTING UP RECLINER; ALERT WITH CONFUSION. ORIENTED TO SELF ONLY AND VERY FORGETFUL. USING CALL LIGHT TO REQUEST A RIDE TO GO HOME. REMINDED THAT HE NEEDS TO BE SEEN BY THE DOCTOR AND DISCHARGED FIRST; CONTINUES TO CALL WITH SAME REQUEST. DENIES PAIN. RESPIRATIONS EVEN AND UNLABORED ON ROOM AIR. IV SITE APPEARS HEALTHY AND FLUSHES. TELE ON. SAFETY MEASURES IN PLACE INCLUDING BED ALARM. CALL LIGHT WITHIN REACH.
--- NOTE | 2019-10-21 07:45 | NUR ---
DR. AMIN AT BEDSIDE.
[2019-10-21 09:28] VITALS: BP 164/79
--- NOTE | 2019-10-21 09:34 | NUR ---
AT BEDSIDE ASKING WHEN PT CAN GO HOME. PT VERY ADAMANT THAT HE WANTS TO GO HOME AND CONTINUES ASKING WHEN HE CAN LEAVE. DISCUSSED PLANS FOR DISCHARGE AFTER HIS MEDICATIONS ARE REVIEWED AND HOME HEALTH CAN BE SET UP. PT STATES, "I NEED OUT OF HERE OR IM GOING TO HAVE A NERVOUS BREAKDOWN!" SITTING UP CHAIR. AMIDARONE GIVEN NOW; BLOOD PRESSURE ELEVATED.
[2019-10-21] MEDS ORDERED: BASAGLAR K100 UNIT/M SC (09:38)
--- NOTE | 2019-10-21 09:45 | NUR ---
PAPER PROCESSING MACHINE HELPER AT BEDSIDE TO DISCUSS NEED FOR HOME HEALTH. PT AGITIATED AND DECLINES HOME HEALTH.
--- NOTE | 2019-10-21 09:54 | NUR ---
IV site discontinued, cath intact. No edema , no redness, voices no discomfort.
--- NOTE | 2019-10-21 10:02 | NUR ---
Discharge instructions given. Patient verbalizes understanding of same. Discharged in stable condition via Wheelchair to Home with spouse. All belongings sent with pt.
--- NOTE | 2019-10-21 15:10 | NUR ---
PT note Patient is screened for PT intervention and no needs are identified
== END 2019-10-21 10:02 | disposition home or self-care (01) ==
LOC: ED 11:09 → ED-I 12:16 → ED 13:53 → MS2 13:54
PROVIDERS: Family Medicine; Nurse Practitioner; ADMIT Internal Medicine; ATTEND Internal Medicine
DX: E11.649 Type 2 diabetes mellitus with hypoglycemia without coma (principal); I13.0 Hypertensive heart and chronic kidney disease with heart failure and stage 1 through stage 4 chronic kidney disease, or unspecified chronic kidney disease; I50.9 Heart failure, unspecified; E11.22 Type 2 diabetes mellitus with diabetic chronic kidney disease; N18.9 Chronic kidney disease, unspecified; E11.40 Type 2 diabetes mellitus with diabetic neuropathy, unspecified; E03.9 Hypothyroidism, unspecified; N40.1 Benign prostatic hyperplasia with lower urinary tract symptoms; R35.0 Frequency of micturition; I25.10 Atherosclerotic heart disease of native coronary artery without angina pectoris; I25.5 Ischemic cardiomyopathy; I25.2 Old myocardial infarction; E78.5 Hyperlipidemia, unspecified; Z95.5 Presence of coronary angioplasty implant and graft; Z79.4 Long term (current) use of insulin; Z86.73 Personal history of transient ischemic attack (TIA), and cerebral infarction without residual deficits; Z87.891 Personal history of nicotine dependence; Z91.11 Patient's noncompliance with dietary regimen; Z11.59 Encounter for screening for other viral diseases
CPT/HCPCS: G0378

== ENCOUNTER 2019-11-19 13:24 | Emergency (ER) | payer MEDICARE, BC ==
[~2019-11-19] VITALS: Ht 172.7 cm; Wt 70.0 kg
[2019-11-19 14:12] LABS: HEMATOCRIT 29.3 % (39.0-50.0); HEMOGLOBIN 9.5 g/dl (14.0-18.0); IMMATURE GRANULOCYTES 0.5 % (0.0-5.0); MEAN CELL VOLUME 92.4 fL CALC (80.0-100.0); MEAN CORPUSCULAR HGB CONC 32.4 g/dL CAL (32.0-36.0); NEUT# 4.11 thou/uL (1.82-7.42); RED BLOOD COUNT 3.17 mill/uL (4.70-6.10); RED CELL DISTRI WIDTH 14.1 % (11.5-15.5)
[2019-11-19 14:24] LABS: ALBUMIN 3.3 g/dL (3.2-5.0); BILIRUBIN, TOTAL 0.5 mg/dL (0.0-1.4); CREATININE 1.9 mg/dL (0.7-1.3); POTASSIUM 4.5 mmol/l (3.5-5.1); TOTAL PROTEIN 6.6 g/dL (6.3-8.2)
[2019-11-19 15:28] LABS: URINE BILIRUBIN - DIPSTICK NEGATIVE (NEGATIVE); URINE BLOOD DIPSTICK LARGE (NEGATIVE); URINE COLOR YELLOW; URINE GLUCOSE - DIPSTICK >=1000 mg/dL (NEGATIVE); URINE KETONE NEGATIVE (NEGATIVE); URINE NITRITE - DIPSTICK NEGATIVE (Negative); URINE PROTEIN - DIPSTICK TRACE mg/dL (NEG-TRACE); URINE SPECIFIC GRAVITY 1.015; URINE UROBILINOGEN - DIPSTICK 0.2 E.U./dL (0.2)
[2019-11-19 15:30] LABS: URINE LEUK ESTERASE MODERATE (NEGATIVE)
[2019-11-19 15:40] LABS: URINE WBC >100 WBC/hpf (0-5); URINE YEAST MANY hpf
[2019-11-19] MEDS ORDERED: KEFLEX500 M1 PO (16:11)
[2019-11-19 17:20] VITALS: BP 159/86
== END 2019-11-19 17:20 | disposition home or self-care (01) ==
LOC: ED 13:24
DX: E11.65 Type 2 diabetes mellitus with hyperglycemia (principal); B37.49 Other urogenital candidiasis; I25.10 Atherosclerotic heart disease of native coronary artery without angina pectoris; I11.0 Hypertensive heart disease with heart failure; I50.9 Heart failure, unspecified; Z95.5 Presence of coronary angioplasty implant and graft; Z79.4 Long term (current) use of insulin; Z86.73 Personal history of transient ischemic attack (TIA), and cerebral infarction without residual deficits; Z91.81 History of falling

== ENCOUNTER 2020-01-02 13:05 | Emergency (ER) | payer MEDICARE, BC ==
[~2020-01-02] VITALS: Ht 172.7 cm; Wt 86.4 kg
[2020-01-02 15:07] VITALS: BP 135/60
== END 2020-01-02 15:08 | disposition home or self-care (01) ==
LOC: ED 13:05
DX: M54.5 Low back pain (principal); S61.411A Laceration without foreign body of right hand, initial encounter; M25.561 Pain in right knee; I11.0 Hypertensive heart disease with heart failure; I50.9 Heart failure, unspecified; E11.9 Type 2 diabetes mellitus without complications; I25.10 Atherosclerotic heart disease of native coronary artery without angina pectoris; E78.5 Hyperlipidemia, unspecified; W01.0XXA Fall on same level from slipping, tripping and stumbling without subsequent striking against object, initial encounter; Y92.009 Unspecified place in unspecified non-institutional (private) residence as the place of occurrence of the external cause; Z86.73 Personal history of transient ischemic attack (TIA), and cerebral infarction without residual deficits; Z95.5 Presence of coronary angioplasty implant and graft

== ENCOUNTER 2020-01-21 09:04 | Observation (INO) | payer MEDICARE, BC ==
[~2020-01-21] VITALS: Ht 172.7 cm; Wt 75.4 kg
--- NOTE | 2020-01-21 09:12 | NUR ---
PT TO ROOM PER EMS. PT ALERT/ORIENTED X3.
--- NOTE | 2020-01-21 10:19 | NUR ---
TO RADIOLOGY IN STABLE CONDITION VIA STRETCHER.
[2020-01-21 11:03] LABS: HEMOGLOBIN 9.7 g/dl (14.0-18.0); IMMATURE GRANULOCYTES 0.7 % (0.0-5.0); MEAN CORPUSCULAR HGB 29.8 pG CALC (26.0-32.0); MEAN CORPUSCULAR HGB CONC 32.3 g/dL CAL (32.0-36.0); NEUT# 7.26 thou/uL (1.82-7.42); RED BLOOD COUNT 3.26 mill/uL (4.70-6.10); RED CELL DISTRI WIDTH 14.3 % (11.5-15.5)
[2020-01-21 11:23] LABS: ACT PARTIAL THROMBO TIME 26.8 SECONDS (20.0-32.5); ALBUMIN 3.6 g/dL (3.2-5.0); CREATININE 1.8 mg/dL (0.7-1.3); INTERNATIONAL NORMALIZED RATIO 1.2 RATIO (0.7-1.3); POTASSIUM 4.1 mmol/l (3.5-5.1); PROTHROMBIN TIME 11.4 SECONDS (9.0-12.5); TOTAL PROTEIN 7.3 g/dL (6.3-8.2)
--- NOTE | 2020-01-21 11:37 | NUR ---
RETURNED FROM RADIOLOGY VIA STRETCHER. PT DENIES PAIN OR DICOMFORT. VSS, MONITORS ATTACHED.
--- NOTE | 2020-01-21 12:28 | NUR ---
MD AT BEDSIDE TO DISCUSS RESULTS AND POC.
[2020-01-21 12:30] LABS: URINE BILIRUBIN - DIPSTICK NEGATIVE (NEGATIVE); URINE BLOOD DIPSTICK LARGE (NEGATIVE); URINE COLOR YELLOW; URINE GLUCOSE - DIPSTICK 100 mg/dL (NEGATIVE); URINE KETONE NEGATIVE (NEGATIVE); URINE NITRITE - DIPSTICK NEGATIVE (Negative); URINE PH 5.5 (4.5-8.0); URINE PROTEIN - DIPSTICK 30 mg/dL (NEG-TRACE); URINE UROBILINOGEN - DIPSTICK 0.2 E.U./dL (0.2)
[2020-01-21 12:35] LABS: URINE LEUK ESTERASE MODERATE (NEGATIVE); URINE RBC 25-50 RBC/hpf (0-5)
[2020-01-21 12:36] LABS: URINE AMORPH SEDIMENT MODERATE hpf (NONE-FER); URINE BACTERIA MANY hpf; URINE EPITHELIAL CELLS MANY EPI/hpf (0-FEW)
--- NOTE | 2020-01-21 13:28 | NUR ---
MEDICATION USE DISCUSSED WITH PATIENT AND SPOUSE. UNABLE TO VERIFY MEDS, NO LIST AVAILABLE. PATIENT COMFORTABLE. CALL CORBIN IN REACH.
--- NOTE | 2020-01-21 14:12 | NUR ---
PT TOLERATED DIABETIC DIET WITHOUT C/O NAUSEA OR VOMITING.
--- NOTE | 2020-01-21 15:47 | NUR ---
IN HIGH FOWLERS WATCHING TV. RESPS EVEN AND UNLABORED ON ROOM AIR, VSS, MONITORS ATTACHED. PO FLUIDS OFFERED. CALL LIGHT WITHIN REACH.
--- NOTE | 2020-01-21 16:59 | NUR ---
REPORT CALLED TO RAMANA JONES.
--- NOTE | 2020-01-21 17:15 | NUR ---
TRANSFERRED VIA STRETCHER TO [place] ROOM 280. STABLE UPON ARRIVAL.
[2020-01-21] MEDS ORDERED: ATORVASTATIN CA40 MG PO (17:53)
[2020-01-21] MEDS ORDERED: TAMSULOSIN HCL0.4 MG PO (17:53)
[2020-01-21] MEDS ORDERED: [UNRECOGNIZED DRUG - OTHER] (17:54)
[2020-01-21] MEDS ORDERED: BASAGLAR K100 UNIT/M (17:54)
[2020-01-21] MEDS ORDERED: LOSARTAN POTASS50 MG PO (17:54)
[2020-01-21] MEDS ORDERED: FUROSEMIDE20 MG PO (17:54)
[2020-01-21 17:55] VITALS: BP 188/100
[2020-01-21] MEDS ORDERED: LEVOTHYROXIN100 MC1 PO (17:55)
[2020-01-21] MEDS ORDERED: FINASTERIDE5 MG PO (17:55)
[2020-01-21] MEDS ORDERED: CEPHALEXIN500 MG PO (17:55)
[2020-01-21] MEDS ORDERED: BUMETANIDE1 MG PO (17:56)
[2020-01-21] MEDS ORDERED: METOCLOPRAMIDE H5 MG PO (17:56)
--- NOTE | 2020-01-21 18:05 | NUR ---
PATIENT HAD COME FROM ER VIA STRETCHTER AT 1706. SANITATION TECHNICIAN WAS IN ROOM TO OBTAIN VS. ASSESSMENT DONE. PATIENT IS A&O X3. PATIENT DENIES PAIN AT THIS TIME. PATIENT STATED HE FELL AT HOME IN THE AM. PATIENT HAS MULTIPLE BRUISES IN ARMS AND SKIN TEARS FROM HIS FALL. PICTURES TAKEN. TELE IN PLACE. 22 RAC THAT APPEARS HEALTHY. CALL LIGHT IN REACH.
--- NOTE | 2020-01-21 18:18 | NUR ---
DR. NOVAK STATED HE WILL REVIEW MEDICATIONS.
--- NOTE | 2020-01-21 18:25 | NUR ---
NOTIFIED DR. NOVAK THAT PATIENT BP IS 188/100 AND P-73.
[2020-01-21 20:00] VITALS: BP 159/67
--- NOTE | 2020-01-21 20:04 | NUR ---
PHYSICAL ASSESMENT COMPLETE. PT CURRENTLY DENIES PAIN OR DISCOMFORT. SCHEDULED MEDICATIONS AND PRN MEDICATION ADMINISTERED, SEE E-MAR. PT DENIES ANY NEEDS AT THIS TIME. PLAN OF CARE REVIEWED, PT DENIES QUESTIONS, VERBALIZES UNDERSTANDING. ITEMS WITHIN REACH, BED LOCKED IN LOW POSITION W/ BEDRAILS UP X2. CALL CORBIN WITHIN REACH, AGREES TO CALL PRN.
--- NOTE | 2020-01-22 00:04 | NUR ---
PT LAYING IN BED WITH EYES CLOSED, APPEARS TO BE SLEEPING, APPEARS COMFORTABLE AND IN NO DISTRESS. RESPIRATIONS REGULAR AND UNLABORED. ITEMS REMAIN WITHIN REACH, CALL CORBIN REMAINS WITHIN REACH. BED REMAINS LOCKED AND IN LOW POSITION WITH BEDRAILS UP X2. WILL CONTINUE TO MONITOR.
[2020-01-22 03:30] VITALS: BP 145/65
--- NOTE | 2020-01-22 04:49 | NUR ---
PT GIVEN BED BATH AND BED CHANGE. SMALL 1 CM OPEN WOUND ON COCCYX. CLEANED, COVERED WITH 4X4 DURODERM, SIGN AND DATED. PT NO C/O AT THIS TIME. WILL CONTINUE TO MONITOR.
[2020-01-22 05:00] LABS: HEMATOCRIT 27.5 % (39.0-50.0); HEMOGLOBIN 8.9 g/dl (14.0-18.0); IMMATURE GRANULOCYTES 0.5 % (0.0-5.0); MEAN CELL VOLUME 92.6 fL CALC (80.0-100.0); MEAN CORPUSCULAR HGB CONC 32.4 g/dL CAL (32.0-36.0); NEUT# 4.46 thou/uL (1.82-7.42); RED BLOOD COUNT 2.97 mill/uL (4.70-6.10); RED CELL DISTRI WIDTH 14.6 % (11.5-15.5)
[2020-01-22 05:04] LABS: ALBUMIN 2.9 g/dL (3.2-5.0); BILIRUBIN, TOTAL 0.9 mg/dL (0.0-1.4); CREATININE 1.8 mg/dL (0.7-1.3); POTASSIUM 4.9 mmol/l (3.5-5.1); TOTAL PROTEIN 6.4 g/dL (6.3-8.2)
[2020-01-22 07:30] VITALS: BP 147/65
--- NOTE | 2020-01-22 10:26 | NUR ---
PATIENT IN BED AT THIS TIME ALERT AND ORIENTED. DENIES ANY NEEDS ALL SAFETY MEASURES ARE IN PLACE CALL LIGHT WITHIN REACH. PATIENT HAS OLD SKIN TEARS AND DRY SCABS AND BRUISING ALL OVER BILATERAL ARMS. WILL CONTINUE TO MONITOR.
[2020-01-22 11:43] VITALS: BP 147/63
--- NOTE | 2020-01-22 11:50 | NUR ---
PATIENT RESTING IN BED AT THIS TIME AWAKE AND ALERT AND ORIENTED. PAITENT DENIES ANY NEEDS CURRENTLY AND DENIES ANY PAIN. ALL SAFETY MEASURES ARE IN PLACE CALL LIGHT WITHIN REACH.
[2020-01-22 15:49] VITALS: BP 141/65
--- NOTE | 2020-01-22 16:12 | NUR ---
PATIENT IN BED RESTING WATCHING TV AT THIS TIME. CALL LIGHT WITHIN REACH. STATES HIS PAIN LEVEL IS A 2 "BECAUSE I'M OLD". ALL SAFETY MEASURES ARE IN PLACE SIDERAILS UP X 2
[2020-01-22 19:00] VITALS: BP 141/69
--- NOTE | 2020-01-22 20:04 | NUR ---
PHYSICAL ASSESMENT COMPLETE. PT CURRENTLY DENIES PAIN OR DISCOMFORT. SCHEDULED MEDICATIONS AND PRN MEDICATION ADMINISTERED, SEE E-MAR. PT STATES HE WILL NEED TO CALL HIS FIRST THING IN THE MORNING. PLAN OF CARE REVIEWED, PT DENIES QUESTIONS, VERBALIZES UNDERSTANDING. ITEMS WITHIN REACH, BED LOCKED IN LOW POSITION W/ BEDRAILS UP X2. CALL CORBIN WITHIN REACH, AGREES TO CALL PRN.
[2020-01-23] VITALS: BP 142/80
[2020-01-23 04:30] VITALS: BP 157/64
--- NOTE | 2020-01-23 05:32 | NUR ---
PT WAS UNCOOPERATIVE WITH PHLEBOTOMISTS ATTEMPTS TO GET BLOOD. PHLEBOTOMISTS STATES SHE WILL GET SOMEONE TO ATTEMPT LATER.
[2020-01-23 07:31] VITALS: BP 148/70
--- NOTE | 2020-01-23 07:31 | NUR ---
PATIENT IN BED ALERT ONLY TO NAME CALL LIGHT NEAR SIDERAILS UP X 2 . PATIENT DENIES ANY PAIN AT THIS TIME AND IS EASILY DIRECTABLE. DIRECTOR [employer] DONE SEE INTERVENTIONS.
[2020-01-23 10:38] LABS: CREATININE 1.5 mg/dL (0.7-1.3); MAGNESIUM 1.9 mg/dL (1.6-2.3); POTASSIUM 4.2 mmol/l (3.5-5.1)
[2020-01-23 11:18] LABS: HEMATOCRIT 25.5 % (39.0-50.0); HEMOGLOBIN 8.3 g/dl (14.0-18.0); MEAN CELL VOLUME 91.4 fL CALC (80.0-100.0); MEAN CORPUSCULAR HGB 29.7 pG CALC (26.0-32.0); MEAN CORPUSCULAR HGB CONC 32.5 g/dL CAL (32.0-36.0); RED BLOOD COUNT 2.79 mill/uL (4.70-6.10); RED CELL DISTRI WIDTH 14.1 % (11.5-15.5)
--- NOTE | 2020-01-23 12:15 | NUR ---
PATIENT RESTING IN BED DENIES ANY NEEDS ALERT TO SELF. ALL SAFETY MEASURES ARE IN PLACE CALL LIGHT WITHIN REACH SIDERAILS X 2.
[2020-01-23 12:55] VITALS: BP 162/80
[2020-01-23 15:05] VITALS: BP 156/74
--- NOTE | 2020-01-23 16:25 | NUR ---
PATIENT SITTING UP IN BED WATCHING TV AT THIS TIME CALL LIGHT WITHIN REACH SIDE RAIL UP DENIES ANY NEEDS AT THIS TIME.
[2020-01-23 19:11] VITALS: BP 166/63
[2020-01-24] VITALS (7 sets, daily range): BP systolic 128–174; BP diastolic 61–74
--- NOTE | 2020-01-24 09:12 | NUR ---
PATIENT IN BED AWAKE AT THIS TIME. ALL SAFETY MEASURES ARE IN PLACE, PATIENT REMINDED OF DAILY ROUTINE FOR THIS MORNING. PATIENT ALERT TO SELF AT THIS TIME PATIENT DENIES ANY NEEDS OR PAIN.
--- NOTE | 2020-01-24 12:10 | NUR ---
PATIENT IN BED ALERT TO SELF EATING LUNCH AT THIS TIME DENIES ANY NEEDS. CALL LIGHT WITHIN REACH SIDERAILS UP X 2
--- NOTE | 2020-01-24 13:58 | NUR ---
PT.NOTE Patient supine as entered room, had agreed to participate in therapy session. Patient executed seated hip flexion x 2 x 15 bilaterally, long arc quads x 15 x 2 bilaterally, supine>sit (MOD A), Verbal cues for proper hand placement. SIt>stand(MOD A), verbal cues for proper leg placement, needed assistance for lower extremities over bed side. Pateient executed 4 sit>stand(MAX A), patient tending to lean retro. Stand>sit(MIN A) assistance w/ slower dexcent. Sit>supine(MIN A) for proper lower extremity movemwnts over bed side. Alberto table and call parker by patient side as exited room. [facility] 6 score 10
--- NOTE | 2020-01-24 16:01 | NUR ---
PATIENT RESTING IN BED AT THIS TIME DENIES ANY PAIN. ALL SAFETY MEASURES ARE IN PLACE CALL LIGHT WITHIN REACH.
--- NOTE | 2020-01-24 18:15 | NUR ---
PATIENT GOT UP WITHOUT ASSISTANCE AND DID NOT USE HIS CALL LIGHT OR CALL OUT FOR ANY HELP. PATIENT IS ALERT ONLY TO SELF. VITALS SIGNS TAKEN AT THIS TIME T.97.0 P. 110 R. 22 SPO2 97% BP 138/66. PATIENT DENIES ANY PAIN AND NO VISIABLE SIGNS OF INJURY ARE NOTED. PATIENT ASSITED BACK TO BED AT THIS TIME WITH STAFF. DR. AMIN CALLED AND NO ORDERS GIVEN AT THIS TIME EXCEPT TO CONTINUE TO MONITOR AND CALL IF CONDITION CHANGES. PATIENT
--- NOTE | 2020-01-24 19:30 | NUR ---
PATIENT RESTING IN BED-CALLING OUT LOUD FOR HIS -PATINET IS ORIENTED TO SELF ONLY. PATIENT OIS ABLE TO GIVE BIRTHDATE AND YEAR. CONFUSED TO PLACE AND TIME. ATTEMPTED TO REORIENT PATIENT TO PLACE AND TIME. PATIENT WAS TURNED AND REPOSITIONED. PATIENT ATTEMPTING TO USE URINAL TO VOID. SCROTUM IS SWOLLEN. AQUACEL FOAM DRESSING INTACT TO COCCYX AND BUTTOCKS AREA. IV SITE TO RIGHT FOREARM INTACT WITH IVF NS PATENT AND INFUSING ORDERED. SITE APPEARS HEALTHY AT THIS TIME. TELE MONITOR IN PLACE. BED ALARM IN PLACE FOR PATIENT SAFETY. CALL LIGHT IN REACH. WILL CONT TO MONITOR.
--- NOTE | 2020-01-24 21:00 | NUR ---
PATIENT CONT TO CALL OUT FREQUENTLY-TURNED AND REPOSITIONED FREQUENTLY. PATIENT ACCU-CHECK WAS 71-PROVIDED WITH OJ AND NO COVERAGE WAS GIVEN. BED ALARM IN PLACE. BED REPOSITIONED IN ROOM FOR PATIENT REQUESTED. TELE MONITOR IN PLACE. BED ALARM IN PLACE FOR PATIENT SAFETY. CALL LIGHT IN REACH. WILL CONT TO MONITOR.
[2020-01-25] VITALS: BP 121/53
--- NOTE | 2020-01-25 | NUR ---
STILL CALLING OUT AT TIMES. PATIENT REPOSITIONED IN BED. PROVIDED WITH MILK PER PATIENT REQUEST. BED ALARM IN PLACE FOR PATIENT SAFETY. CALL LIGHT IN REACH. WILL CONT TO MONITOR.
[2020-01-25 04:00] VITALS: BP 105/63
--- NOTE | 2020-01-25 04:00 | NUR ---
PATIENT FOUND IN BED WITH IV DISLODGED. PATIENT WITH GOWN OFF AND INCONT OF URINE. PATIENT WAS BATHED AND ASSISTED OOB TO CHAIR PER PATIENT REQUEST. BED ALARM IN PLACE FOR PATIENT SAFETY. TELE MONITOR IN PLACE. CALL LIGHT IN REACH. WILL CONT TO MONITOR
[2020-01-25 05:32] LABS: HEMATOCRIT 26.3 % (39.0-50.0); HEMOGLOBIN 8.5 g/dl (14.0-18.0); MEAN CORPUSCULAR HGB 29.4 pG CALC (26.0-32.0); MEAN CORPUSCULAR HGB CONC 32.3 g/dL CAL (32.0-36.0); RED BLOOD COUNT 2.89 mill/uL (4.70-6.10)
[2020-01-25 05:54] LABS: CREATININE 1.8 mg/dL (0.7-1.3); MAGNESIUM 1.8 mg/dL (1.6-2.3); POTASSIUM 3.7 mmol/l (3.5-5.1)
--- NOTE | 2020-01-25 06:00 | NUR ---
PATIENT BATHED AND ASSISTED OOB TO THE CHAIR. BS ON AM LABS WAS 61. PATIENT PROVIDED AND DRANK 120CC OF OJ-PATIENT DOES HAVE COUGH AFTER TAKING PO FLUIDS. NEW IV SITE STARTED TO LEFT WRIST-#24 WITH GOOD BLOOD RETURN. BS RECHECKED AND WAS 93. PATIENT CONT TO BE CONFUSED TO PLACE AND TIME. BED ALARM FOR PATIENT SAFETY. CALL LIGHT IN REACH. WILL CONT TO MONITOR.
[2020-01-25 07:56] VITALS: BP 113/62
--- NOTE | 2020-01-25 07:56 | NUR ---
RECIEVED REPORT FROM ROBERT JAMA. PT SLEEPING IN CHAIR PIYUSH ENTERING ROOM. TO DIFFULCT TO AWAKEN. PT MOANING WHEN CALLING OUT NAME. PT STATES "STOP" WHEN STERNAL RUB. ASSESSMENT AND VITALS COMPLETED. BP 113/62, HR 81, O2 99% ON ROOM AIR. RESPIRATIONS ARE EVEN AND UNLABROED. HEART RHYTHM NORMAL, SR PER ER MONITORING. BOWEL SOUNDS ARE ACTIVE IN ALL QUADRANTS, LAST REPORTED BM 01/23/2020. RADIAL PULSES STRONG. PEDAL PULSES WEAK. SIRI HOSE APPLIED. MUTIPLE BRUISING SCATTERED THROUGH OUT BODY NOTED, NONE OPEN. NO SIGNS OF ANY PAIN OR DISCOMFORTS AT THIS TIME. ALL SAFETY PRECAUTIONS ARE IN PLACE WITH CALL LIGHT IN REACH AND CHAIR ALARM ACTIVATED. WILL CONTINUE TO MONITOR
--- NOTE | 2020-01-25 09:01 | NUR ---
PT SLEEPING IN CHAIR.PT MUCH EASIER TO WAKEN. INTRODUCED SELF TO PT AND DISCUSSED POC. PT IS A/O X1. STEWARD/STEWARDESS ORIENTED PT TO DAY AND PLACE. MORNING MED ADMINISTERED WITH APPLE SAUCE. PT TOLERATED WELL. PT DENEIS ANY PAIN. ALL SAFTEY PRECAUTIONS ARE IN PLACE IWTH CHAIR ALARM IN PLACE. WILL CONTINUE TO MONITOR
--- NOTE | 2020-01-25 09:03 | NUR ---
DR AMIN AT BEDSIDE DISCUSSING POC
--- NOTE | 2020-01-25 09:35 | NUR ---
PHYSICAL THERAPY AT BEDSIDE
--- NOTE | 2020-01-25 09:48 | NUR ---
Physical Therapy Note: functional activity of transfer training Pt. in recliner upon enterning room. Pt. requesting use of BSC. Started treatment with active assisted scooting to edge of recliner (verbal+tactile cues). Attempted sit>stand 2 times with mod. assist and cues for hand placement. On 3rd attempt pt. sit>stand with mod. assist x 1, pt. then held walker and with cues pt. took steps latterally and sat on BSC. Once done pt. sit>stand to walker from BSC with min. assist x1. Again pt. took some steps latterally back to recliner using walker with min. assist x1 and used his hands to control descent onto recliner. LE's were elevated, pt. provided with new gown, call light reviewed and left within reach. Alarm was applied and functioning. Pt. left resting comfortably in recliner without questions/concerns, attending nurse informed of same. O2 sats ranged between 90-97%. [facility] 6 score: 10.
[2020-01-25 11:16] VITALS: BP 135/55
--- NOTE | 2020-01-25 12:03 | NUR ---
PT SLEEPING IN CHAIR.PT MOANING WHEN NAME CALLED AND WAKENS FROM STERNAL RUB BUT APPEARS VERY DROWSY. RESPIRATIONS ARE EVEN AND UNLABORED ON ROOM AIR. IVF INFUSING PER ORDER, SITE APPEARS HEALTHY AND PATENT. TELE MONITORING IN PLACE, SR PER ER MONITORING. GLUCOSE RESULTING IN 212, 2 UNITS ADMINISTERED. PT TOLERATED WELL. ALL SAFETY PRECAUTIONS ARE IN PLACE WITH CALL LIGHT IN REACH AND CHAIR ALARM ACTIVATED. WILL CONTINUE TO MONITOR.
--- NOTE | 2020-01-25 13:53 | NUR ---
SPOKE TO OF PT. APPROVAL GOTTEN FOR TO COME TO VISIT PT AND SPEAK TO PT ABOUT POSSIBLY GOING TO REHAB. QUESTIONED IF PT IS NOT WANTING TO GO TO REHAB WHAT IS AVAILABLE WHEN COMING HOME. TRANSFERED TO .
--- NOTE | 2020-01-25 14:35 | NUR ---
UPDATE FROM CM. IS TO COME TO HOSPITAL TO SPEAK TO PT ABOUT REHAB
[2020-01-25 16:04] VITALS: BP 118/56
--- NOTE | 2020-01-25 16:47 | NUR ---
PT SITTING IN RECYLINER WITH AT BEDSIDE. RESPIRATIONS ARE EVEN AND UNLABROED ON ROOM AIR. UPDATED BY CM THAT PT AGGREED TO [facility]. PT DENIES OF ANY DISCOMFORTS OR NEEDS AT THIS TIME. ALL SAFTEY PRECAUTIONS ARE IN PLACE WITH CALL LIGHT IN REACH WITH CHAIR ALARM ACTIVATED. WILL CONTINUE TO MONITOR
[2020-01-25 19:00] VITALS: BP 122/53
--- NOTE | 2020-01-25 21:55 | NUR ---
PATIENT MAX ASSIST TO BSC FOR LARGE SOFT BROWN BM. MAX ASSIST BACK TO BED. CONT TO C/O BLE PAIN-AWAITING PHARM TO PROFILE MEDS. ALREADY HAVE CALL THEM TWICE. WILL MEDICATE YARI MEDICATION IS PROFILED ON EMAR. BED ALARM IN PLACE. TELE MONITOR IN PLACE. IVF PATENT AND INFUSING VIA LEFT WRIST IV SITE AT 20CC/HR. SITE REMAINS HEALTHY AT THIS TIME. PATIENT IS VOIDING AMANDA URINE INURINAL. SAFETY PRECAUTIONS REINFORCED. BED ALARM IN PLACE FOR PATIENT SAFETY. CALL LIGHT IN REACH. WILL CONT TO MONITOR.
--- NOTE | 2020-01-25 22:17 | NUR ---
PATIENT RESTING IN BED. MEDICATED FOR PAIN WITH ULTRAM 50MG PO FOR 10/10 CRAMPY PAIN TO BLE. PATIENT HAD HS SNACK POF CEREAL BAR AND CARTON OF MILK. BED ALARM IN PLACE FOR PATIENT SAFETY. CALL LIGHT IN REACH. WILL CONT TO MONITOR.
--- NOTE | 2020-01-25 23:55 | NUR ---
PATIENT HAS QUIETED DOWN-NOT CALLING OUT LIKE HE WAS EARLIER. STATES SOME RELIEF FROM ULTRAM GIVEN EALIER. TELE MONITOR IN PLACE. IVF PATENT AND INFUSING VIA LEFT WRIST SITE AT 20CC/HR. BED ALARM IN PLACE FOR PATIENT SAFETY. CALL LIGHT IN REACH. WILL CONT TO MONITOR.
[2020-01-26] VITALS: BP 109/51
--- NOTE | 2020-01-26 02:25 | NUR ---
PATIENT APPEARS SLEEPING WITH HOB ELEVATED AND EYES CLOSED. RESPS ARE EVEN AND UNLABORED. TELE MONITOR IN PLACE. IVF PATENT AND INFUSING VIA LEFT WRIST SITE AT 20CC/HR. BED ALARM IN PLACE FOR PATIENT SAFETY. CALL LIGHT IN REACH. WILL CONT TO MONITOR.
[2020-01-26 04:00] VITALS: BP 125/61
--- NOTE | 2020-01-26 04:19 | NUR ---
PATIENT APPEARS SLEEPING AT THIS TIME WITH HOB ELEVATED AND EYES CLOSED. RESPS ARE EVEN AND UNLABORED. TELE MONITOR IN PLACE. IVF NS PATENT AND INFUSING VIA LEFT WRIST IV SITE AT 20CC/HR. SITE IS HEALTHY AT THIS TIME. BED ALARM IN PLACE FOR PATIENT SAFETY. CALL LIGHT IN REACH. WILL CONT TO MONITOR.
[2020-01-26 07:57] VITALS: BP 172/72
--- NOTE | 2020-01-26 07:57 | NUR ---
RECIEVED REPORT FROM ROBERT JAMA. PT RESTING IN SEMI FOWLERS POSITION UPON ENTERING ROOM. INTRODUCED SELF TO PT AND DISCUSSED POC. PT IS A/O X2. ASSESSMENT AND VITALS COMPLETED. BP 172/72, HR 77, O2 99% ON ROOM AIR. RESPIRATIONS ARE EVEN AND UNLABORED. HEART RHYTHM IS NORMAL, SR PER ER MONITORING. BOWEL SOUNDS ARE ACTIVE IN ALL QUADRANTS, LAST REPORTED BM 01/25/2020. RADIAL PULSES STRONG. PEDAL PULSES WEAK. #24G IN LW RUNNING WITH IVF PER ORDER, SITE APPEARS HEALTHY AND PATENT.SKIN IS WARM AND INTACT. PT PRESENTS WITH MULTIPLE BRUISING AND SCABBING THROUGH OUT BODY.FROM PREVIOUS FALLS. NOTHING OPEN. PT DENIES ANY PAIN AT THIS TIME. ALL SFAETY PRECAUTIONS ARE IN PLACE WITH CALL LIGHT IN REACH AND BED ALARM ACTIVATED. WILL CONTINUE TO MONITOR
--- NOTE | 2020-01-26 09:32 | NUR ---
DR AMIN AT BEDSIDE DISCUSSING POC
--- NOTE | 2020-01-26 09:52 | NUR ---
BIOFIRE COLLECTED. PT TOLERATED WELL.
--- NOTE | 2020-01-26 10:43 | NUR ---
PT AT BEDSIDE
[2020-01-26] MEDS ORDERED: KEFLEX500 M1 PO (10:50)
[2020-01-26 11:19] VITALS: BP 126/60
--- NOTE | 2020-01-26 12:16 | NUR ---
PT EDUCATED ON DISCHARGE INSTRUCTIONS AND NEW MEDICATION KEFLEX. PT VERBALIZED UNDERSTANDING. CALLED AND EDUCATED ON DISCHARGE INSTRUCTION. VERBALIZED UNDERSTANDIND. PT REMAINS RESTING IN SEMI FOWLERS POSITION. RESPIRATIONS ARE EVEN AND UNLABORED ON ROOM AIR. PT DENIES ANY PAIN. ALL SAFETY PRECAUTIONS ARE IN PLACE WITH CALL LIGHT IN REACH. WILL CONTINUE TO MONITOR
--- NOTE | 2020-01-26 13:57 | NUR ---
AQUACEL REPLACE ON BUTTOCKS. PT TOLERATED WELL.
--- NOTE | 2020-01-26 14:05 | NUR ---
Discharge instructions given. Patient verbalizes understanding of same. Discharged in stable condition via Wheelchair to Home with staff. All belongings sent with pt. PT DISCHARGED TO [facility] VIA WHEELCHAIR IN STABLE CONDITION.PT DISCHARGED WITH ALL DISCHARGE INSTRUCTIONS AND BELONGINGS. REPORT CALLED TO NURSE AT [facility]
--- NOTE | 2020-01-26 14:24 | NUR ---
PT NOTIFIED OF DISCHARGE
== END 2020-01-26 14:05 ==
LOC: ED 09:04 → ED-I 11:53 → ED 13:43 → MS2 13:44
PROVIDERS: Nurse Practitioner; ADMIT Internal Medicine; ATTEND Internal Medicine
DX: R53.1 Weakness (principal); B37.49 Other urogenital candidiasis; I12.9 Hypertensive chronic kidney disease with stage 1 through stage 4 chronic kidney disease, or unspecified chronic kidney disease; E11.22 Type 2 diabetes mellitus with diabetic chronic kidney disease; N18.9 Chronic kidney disease, unspecified; S50.812A Abrasion of left forearm, initial encounter; S50.811A Abrasion of right forearm, initial encounter; S60.812A Abrasion of left wrist, initial encounter; S60.811A Abrasion of right wrist, initial encounter; E11.42 Type 2 diabetes mellitus with diabetic polyneuropathy; E03.9 Hypothyroidism, unspecified; N40.0 Benign prostatic hyperplasia without lower urinary tract symptoms; I25.10 Atherosclerotic heart disease of native coronary artery without angina pectoris; M54.5 Low back pain; E78.5 Hyperlipidemia, unspecified; I25.5 Ischemic cardiomyopathy; I25.2 Old myocardial infarction; W18.39XA Other fall on same level, initial encounter; Y92.009 Unspecified place in unspecified non-institutional (private) residence as the place of occurrence of the external cause; T14.8XXD Other injury of unspecified body region, subsequent encounter; W19.XXXD Unspecified fall, subsequent encounter; Z91.81 History of falling; Z79.4 Long term (current) use of insulin; Z95.5 Presence of coronary angioplasty implant and graft; Z86.73 Personal history of transient ischemic attack (TIA), and cerebral infarction without residual deficits; Z87.891 Personal history of nicotine dependence; Z87.440 Personal history of urinary (tract) infections; Z20.828 Contact with and (suspected) exposure to other viral communicable diseases

== ENCOUNTER 2020-04-06 02:24 | Inpatient (IN) | payer MEDICARE, BC ==
[~2020-04-06] VITALS: Ht 172.7 cm; Wt 69.0 kg
[~2020-04-06 02:24] MED LIST changes: +BASAGLAR K100 UNIT/M; +[UNRECOGNIZED DRUG - OTHER]
[2020-04-06 03:25] LABS: HEMATOCRIT 30.3 % (39.0-50.0); HEMOGLOBIN 8.9 g/dl (14.0-18.0); IMMATURE GRANULOCYTES 0.6 % (0.0-5.0); MEAN CELL VOLUME 96.2 fL CALC (80.0-100.0); MEAN CORPUSCULAR HGB 28.3 pG CALC (26.0-32.0); MEAN CORPUSCULAR HGB CONC 29.4 g/dL CAL (32.0-36.0); NEUT# 14.67 thou/uL (1.82-7.42); RED BLOOD COUNT 3.15 mill/uL (4.70-6.10); RED CELL DISTRI WIDTH 16.1 % (11.5-15.5)
[2020-04-06 03:27] LABS: URINE BILIRUBIN - DIPSTICK NEGATIVE (NEGATIVE); URINE BLOOD DIPSTICK MODERATE (NEGATIVE); URINE COLOR YELLOW; URINE GLUCOSE - DIPSTICK NEGATIVE (NEGATIVE); URINE KETONE NEGATIVE (NEGATIVE); URINE NITRITE - DIPSTICK NEGATIVE (Negative); URINE PH 6.5 (4.5-8.0); URINE PROTEIN - DIPSTICK 100 mg/dL (NEG-TRACE); URINE UROBILINOGEN - DIPSTICK 0.2 E.U./dL (0.2)
[2020-04-06 03:38] LABS: ALBUMIN 3.1 g/dL (3.2-5.0); TOTAL PROTEIN 7.1 g/dL (6.3-8.2)
[2020-04-06 03:44] LABS: URINE LEUK ESTERASE MODERATE (NEGATIVE)
[2020-04-06 03:46] LABS: URINE AMORPH SEDIMENT FEW hpf (NONE-FER); URINE BACTERIA FEW hpf; URINE RBC 25-50 RBC/hpf (0-5); URINE SQUAMOUS EPITHELIAL CELL FEW EPI/hpf (0-FEW); URINE WBC 20-50 WBC/hpf (0-5); URINE YEAST MODERATE hpf
[2020-04-06 03:54] LABS: BILIRUBIN, TOTAL 0.5 mg/dL (0.0-1.4); CREATININE 4.9 mg/dL (0.7-1.3); POTASSIUM 5.2 mmol/l (3.5-5.1)
[2020-04-06 06:28] VITALS: BP 92/49
[2020-04-06 07:47] VITALS: BP 120/78
[2020-04-06 08:52] LABS: CREATININE 4.5 mg/dL (0.7-1.3); POTASSIUM 4.9 mmol/l (3.5-5.1)
[2020-04-06 10:11] VITALS: BP 106/57
[2020-04-06 14:30] VITALS: BP 96/44
[2020-04-06 20:00] VITALS: BP 113/57
[2020-04-07] VITALS (56 sets, daily range): BP systolic 74–135; BP diastolic 27–58
[2020-04-07 05:11] LABS: HEMATOCRIT 25.9 % (39.0-50.0); HEMOGLOBIN 7.7 g/dl (14.0-18.0); IMMATURE GRANULOCYTES 0.8 % (0.0-5.0); MEAN CELL VOLUME 94.9 fL CALC (80.0-100.0); MEAN CORPUSCULAR HGB 28.2 pG CALC (26.0-32.0); MEAN CORPUSCULAR HGB CONC 29.7 g/dL CAL (32.0-36.0); NEUT# 10.06 thou/uL (1.82-7.42); RED BLOOD COUNT 2.73 mill/uL (4.70-6.10); RED CELL DISTRI WIDTH 16.2 % (11.5-15.5)
[2020-04-07 05:36] LABS: BILIRUBIN, TOTAL 0.5 mg/dL (0.0-1.4); CREATININE 4.5 mg/dL (0.7-1.3); POTASSIUM 4.2 mmol/l (3.5-5.1)
[2020-04-07 06:05] LABS: ALBUMIN 2.4 g/dL (3.2-5.0); MAGNESIUM 3.1 mg/dL (1.6-2.3)
[2020-04-08] VITALS (21 sets, daily range): BP systolic 105–162; BP diastolic 46–85
[2020-04-09] VITALS (20 sets, daily range): BP systolic 83–138; BP diastolic 34–72
[2020-04-09 06:03] LABS: BILIRUBIN, TOTAL 0.5 mg/dL (0.0-1.4); MAGNESIUM 2.4 mg/dL (1.6-2.3); TOTAL PROTEIN 5.3 g/dL (6.3-8.2)
[2020-04-09 06:08] LABS: HEMATOCRIT 22.5 % (39.0-50.0); IMMATURE GRANULOCYTES 1.8 % (0.0-5.0); MEAN CELL VOLUME 93.8 fL CALC (80.0-100.0); MEAN CORPUSCULAR HGB 28.3 pG CALC (26.0-32.0); MEAN CORPUSCULAR HGB CONC 30.2 g/dL CAL (32.0-36.0); NEUT# 6.8 thou/uL (1.82-7.42); RED BLOOD COUNT 2.4 mill/uL (4.70-6.10); RED CELL DISTRI WIDTH 16.6 % (11.5-15.5)
[2020-04-09 06:12] LABS: POTASSIUM 3.3 mmol/l (3.5-5.1)
[2020-04-09 06:42] LABS: HEMOGLOBIN 6.8 g/dl (14.0-18.0)
[2020-04-10] VITALS (7 sets, daily range): BP systolic 99–134; BP diastolic 50–69
[2020-04-11 04:00] VITALS: BP 115/53
[2020-04-11 07:09] VITALS: BP 138/63
== END 2020-04-11 15:30 | disposition hospice, inpatient (51) | DRG 871 ==
LOC: ED 02:24 → ED-I 03:27 → ED 03:41 → MS2 03:42 → ICU 03:42 → MS2 04-10 11:35
PROVIDERS: Family Medicine; Internal Medicine; Nurse Practitioner; ADMIT Internal Medicine; ATTEND Internal Medicine
PROC: 0T9B70Z Drainage of Bladder with Drainage Device, Via Natural or Artificial Opening (ICD-10-PCS; principal; 2020-04-06)
DX: A41.01 Sepsis due to Methicillin susceptible Staphylococcus aureus (principal); R65.21 Severe sepsis with septic shock; J15.0 Pneumonia due to Klebsiella pneumoniae; G93.41 Metabolic encephalopathy; I13.0 Hypertensive heart and chronic kidney disease with heart failure and stage 1 through stage 4 chronic kidney disease, or unspecified chronic kidney disease; N17.9 Acute kidney failure, unspecified; E11.52 Type 2 diabetes mellitus with diabetic peripheral angiopathy with gangrene; L97.419 Non-pressure chronic ulcer of right heel and midfoot with unspecified severity; I96 Gangrene, not elsewhere classified; N39.0 Urinary tract infection, site not specified; I50.9 Heart failure, unspecified; E11.22 Type 2 diabetes mellitus with diabetic chronic kidney disease; N18.9 Chronic kidney disease, unspecified; E11.621 Type 2 diabetes mellitus with foot ulcer; L97.529 Non-pressure chronic ulcer of other part of left foot with unspecified severity; E11.51 Type 2 diabetes mellitus with diabetic peripheral angiopathy without gangrene; E11.42 Type 2 diabetes mellitus with diabetic polyneuropathy; E86.0 Dehydration; D64.9 Anemia, unspecified; E88.09 Other disorders of plasma-protein metabolism, not elsewhere classified; E87.5 Hyperkalemia; I95.9 Hypotension, unspecified; I25.10 Atherosclerotic heart disease of native coronary artery without angina pectoris; R68.0 Hypothermia, not associated with low environmental temperature; I25.5 Ischemic cardiomyopathy; F03.90 Unspecified dementia, unspecified severity, without behavioral disturbance, psychotic disturbance, mood disturbance, and anxiety; E78.5 Hyperlipidemia, unspecified; E03.9 Hypothyroidism, unspecified; N40.0 Benign prostatic hyperplasia without lower urinary tract symptoms; R09.02 Hypoxemia; I25.2 Old myocardial infarction; B95.62 Methicillin resistant Staphylococcus aureus infection as the cause of diseases classified elsewhere; Z51.5 Encounter for palliative care; Z79.4 Long term (current) use of insulin; Z66 Do not resuscitate; Z74.01 Bed confinement status; Z95.5 Presence of coronary angioplasty implant and graft; Z86.73 Personal history of transient ischemic attack (TIA), and cerebral infarction without residual deficits; Z20.822 Contact with and (suspected) exposure to COVID-19
CPT/HCPCS: J2060; S0164